=== PATIENT | female | born 1955 | race African-American/Black ===

== ENCOUNTER 2017-10-02 17:58 | Inpatient (IN) | payer OTHER ==
--- NOTE | 2017-10-02 18:17 | PDOC ---
Attending Attestation - Resident Resident Name: Gonzalo Greenberg - ED Attending Attestation I have performed the following: I have examined & evaluated the patient, The case was reviewed & discussed with the resident, I agree w/resident's findings & plan, Exceptions are as noted - HPI HPI: 10/02/17 18:18 61yo F hx HTN, back pain, currently in a NH for rehab p/w 10 minutes of chest tightness [employer]IOR [employer] PROGRAM[employer] in the ED. Reports tightness was sternal, non radiating, with no associated N/V, diaphoresis, SOB, cough. Not worse with deep inspiration. No current CP, complaining only of back pain that she normally has. - Physicial Exam PE: 10/02/17 21:24 GENERAL: Awake, alert, and fully oriented, in no acute distress HEAD: No signs of trauma EYES: PERRLA, EOMI, sclera anicteric, conjunctiva clear ENT: Auricles normal inspection, hearing grossly normal, nares patent, oropharynx clear without exudates. Moist mucosa NECK: Normal ROM, supple, no lymphadenopathy, JVD, or masses LUNGS: Breath sounds equal, clear to auscultation bilaterally. No wheezes, and no crackles HEART: Regular rate and rhythm, normal S1 and S2, no murmurs, rubs or gallops ABDOMEN: Soft, nontender, normoactive bowel sounds. No guarding, no rebound. No masses EXTREMITIES: Normal range of motion, no edema. No clubbing or cyanosis. No cords, erythema, or tenderness NEUROLOGICAL: Normal speech, cranial nerves intact, negative pronator drift, 5/ 5 strength in all 4 extremities, normal sensation to light touch in all 4 extremities, normal cerebellar exam, normal reflexes and tone SKIN: Warm, Dry, normal turgor, no rashes or lesions noted. - Medical Decision Making 10/02/17 21:24 61yo F hx HTN, smoking p/w 10 minutes of chest tightness, now resolved. Currently only c/o back pain which she has at baseline. Vitals wnl. Exam wnl. EKG non ischemic. Very atypical story for ACS, heart score is 2, will check 2 troponins. Will also obtain CXR and reassess. 10/03/17 02:40 Trop neg. Pt having persistent back pain and spasms, says worse than usual back pain. Rates pain at 10/10. Obtained CTA to r/o dissection which is negative, however, IOC recommends US as pt has some GB wall edema and gall stones. LFTs only mildly elevated, no WBC. On re-exam, no ttp in RUQ, neg murphys sign. We do not have US, will order in the AM. Pt still having pain, will admit for obs given persistent back pain. 10/03/17 02:51 Pt signed out to Dr. Rose. Case discussed in detail with admitting physician including history, physical exam and ancillary studies. Admitting physician has assumed care for the patient, will follow all pending diagnostics and will complete the evaluation and treatment. Discharge Disposition - Diagnosis Chest pain - Discharge Dispostion Condition at time of disposition: Stable Last Admission D/C Date: 07/16/16 Admit: Yes - Referrals - Patient Instructions - Post Discharge Activity - Transfer to Acute Care Facility Transfer comment: 10/03/17 02:54 I, Dr. Anette Harris MD, attest that this document has been prepared under my direction and personally reviewed by me in its entirety. I further attest, that it accurately reflects all work, treatment, procedures and medical decision -making performed by me. Heart Score/ECG Review #1 10/02/17 21:29 Twelve-lead EKG was performed and reviewed by me. Normal sinus rhythm, rate 66. Normal axis and intervals. No ST elevations or T-wave inversions.
--- NOTE | 2017-10-02 18:51 | PDOC ---
History of Present Illness - General Chief Complaint: Chest Pain Stated Complaint: CHEST PAIN Time Seen by Provider: 10/02/17 18:07 History Source: Patient, EMS Exam Limitations: No Limitations - History of Present Illness Initial Comments: 10/02/17 18:40 The patient is a 61F with a PMH of HTN and neuralgia who presents to the ED via EMS for chest pressure and back pain. The patient states that her back pain started 20 minutes before her presentation and is accompanied with back spasms, but she states that they are separately occurring. She currently is only complaining of back spasms. She denies any other complaints. No current CP, SOB , fever, chills, nausea, vomiting. Past History - Past Medical History Allergies/Adverse Reactions: Allergies Allergy/AdvReac Type Severity Reaction Status Date / Time Fish Containing Products Allergy Verified 10/04/17 05:09 Home Medications: Ambulatory Orders Baclofen [Lioresal -] 10 mg PO DAILY 10/02/17 Docusate Sodium [Colace -] 200 mg PO HS 10/02/17 Gabapentin [Neurontin -] 300 mg PO Q8H 10/02/17 Menthol [Bengay Ultra Strength] 1 each TP DAILY 10/02/17 Omeprazole Magnesium [Prilosec Otc] 20 mg PO DAILY 10/02/17 Oxycodone HCl [Roxicodone -] 5 mg PO Q6H 10/02/17 Sennosides [Senna] 17.2 mg PO DAILY 10/02/17 Amlodipine Besylate [Norvasc -] 5 mg PO DAILY #30 tablet 10/08/17 Lactulose (Oral Use) [Cephulac -] 20 gm PO TID #1 bottle 10/08/17 Levofloxacin [Levaquin] 750 mg PO DAILY #3 tab 10/08/17 Metronidazole [Flagyl -] 500 mg PO Q8H #9 tablet 10/08/17 Nadolol [Corgard] 40 mg GT DAILY #30 tablet 10/08/17 HTN: Yes - Immunization History Immunization Up to Date: Yes - Suicide/Smoking/Psychosocial Hx Smoking History: Current every day smoker Have you smoked in the past 12 months: No Number of Cigarettes Smoked Daily: 2 Cigars Per Day: 0 Hx Alcohol Use: No Drug/Substance Use Hx: No Substance Use Type: Alcohol Hx Substance Use Treatment: No Review of Systems - Review of Systems Comments:: 10/02/17 18:52 GENERAL/CONSTITUTIONAL: No fever or chills. No weakness. HEAD, EYES, EARS, NOSE AND THROAT: No change in vision. No ear pain or discharge. No sore throat. GASTROINTESTINAL: No nausea, vomiting, diarrhea, constipation, or abdominal pain. GENITOURINARY: No dysuria, frequency, hematuria, or change in urination. CARDIOVASCULAR: No chest pain, palpitations, or lightheadedness. RESPIRATORY: No cough, wheezing, shortness of breath, or hemoptysis. MUSCULOSKELETAL: Positive for back pain. No joint or muscle swelling or pain. SKIN: No rash or lesions. NEUROLOGIC: No headache, numbness, tingling, weakness, loss of consciousness, or change in strength/sensation. ENDOCRINE: No increased thirst. No abnormal weight change. HEMATOLOGIC/LYMPHATIC: No anemia, easy bleeding, or history of blood clots. ALLERGIC/IMMUNOLOGIC: No hives or skin allergy. *Physical Exam - Physical Exam Comments: 10/02/17 18:52 GENERAL: Well developed, well nourished. Awake and alert. No acute distress. HEENT: Normocephalic, atraumatic. Hearing grossly normal. Moist mucous membranes. NECK: Supple. Full ROM. No JVD. Carotid pulses 2+ and symmetric, without bruits. No thyromegaly. No lymphadenopathy. CARDIOVASCULAR: Regular rate and rhythm. No murmurs, rubs, or gallops. Distal pulses are 2+ and symmetric. PULMONARY: No evidence of respiratory distress. Lungs clear to auscultation bilaterally. No wheezing, rales or rhonchi. ABDOMINAL: Soft. Non-tender. Non-distended. No rebound or guarding. No organomegaly. Normoactive bowel sounds. GENITOURINARY: No CVA tenderness bilaterally. MUSCULOSKELETAL: Normal range of motion at all joints. No bony deformities or tenderness. EXTREMITIES: No cyanosis. No clubbing. No edema. No calf tenderness. SKIN: Warm and dry. Normal capillary refill. No rashes. No jaundice. NEUROLOGICAL: Alert, awake, appropriate. Cranial nerves 2-12 intact. PSYCHIATRIC: Cooperative. Good eye contact. Appropriate mood and affect. Heart Score/ECG Review #1 General ECG Interpretation: Sinus Rhythm, Normal Rate, Normal Intervals, No acute ischemic changes Compared to previous ECG there are: No significant change 10/02/17 19:00 Rate 66 QRS 84 QTc 446 ED Treatment Course - LABORATORY CBC & Chemistry Diagram: 10/08/17 07:15 10/08/17 07:15 - RADIOLOGY Radiology Studies Ordered: Category Date Time Status CHEST X-RAY PORTABLE* [RAD] Stat Radiology 10/02/17 18:18 Taken Medical Decision Making - Medical Decision Making 10/02/17 19:01 The patient is a 61F with a PMH of HTN and neuralgia who presents to the ED from [facility] for chest pressure and back spasms. Her chest pressure is resolved and her back spasms are a chronic problem. EKG looks unchanged. Labs pending. Patient signed out to [facility] team. *DC/Admit/Observation/Transfer Diagnosis at time of Disposition: Chest pain Qualifiers: Chest pain type: unspecified Qualified Code(s): R07.9 - Chest pain, unspecified - Discharge Dispostion Disposition: AGAINST MEDICAL ADVICE Condition at time of disposition: Stable - Prescriptions - Referrals - Patient Instructions - Post Discharge Activity
[2017-10-02 19:05] LABS: BASO % 0.1 % (0-2.0); EOS % 0.2 % (0-4.5); HEMATOCRIT 35.7 % (32.4-45.2); LYMPH % 13.6 % (8-40); MCH 29.9 pg (25.7-33.7); MCHC 33.6 g/dl (32.0-36.0); MEAN CELL VOLUME 89.1 fl (80-96); MEAN PLT VOLUME 8.4 fl (7.5-11.1); MONO % 7.4 % (3.8-10.2); NEUT % 78.7 % (42.8-82.8); PLATELET COUNT 135 K/MM3 (134-434); RBC 4.01 M/mm3 (3.60-5.2); RDW 13.2 % (11.6-15.6); WHITE BLOOD COUNT 9.5 K/mm3 (4.0-10.0)
[2017-10-02 19:37] LABS: ALBUMIN 2.8 g/dl (3.4-5.0); ANION GAP 10 (8-16); BILIRUBIN,TOTAL 0.9 mg/dL (0.2-1.0); BLOOD UREA NITROGEN 17 mg/dL (7-18); CALCIUM 8.4 mg/dL (8.5-10.1); CHLORIDE 106 mmol/L (98-107); CO2 21 mmol/L (21-32); CREATININE 1.1 mg/dL (0.55-1.02); GLUCOSE,RANDOM 175 mg/dL (74-106); POTASSIUM 3.9 mmol/L (3.5-5.1); SGOT/AST 51 U/L (15-37); SGPT/ALT 44 U/L (12-78); SODIUM 137 mmol/L (136-145); TOT PROT 8.6 g/dl (6.4-8.2)
[2017-10-02 19:39] LABS: ALK PHOS 117 U/L (45-117)
--- NOTE | 2017-10-02 21:20 | PDOC ---
*Physical Exam - Vital Signs Last Vital Signs Temp Pulse Resp BP Pulse Ox 97.4 F L 65 16 126/72 100 10/02/17 19:03 10/02/17 19:03 10/02/17 19:03 10/02/17 19:03 10/02/17 19:03 - Physical Exam General Appearance: Yes: Nourished HEENT: positive: EOMI, Normal Voice Neck: positive: Supple Respiratory/Chest: positive: Lungs Clear, Normal Breath Sounds. negative: Chest Tender, Respiratory Distress Cardiovascular: positive: Regular Rhythm, Regular Rate Gastrointestinal/Abdominal: positive: Normal Bowel Sounds, Soft. negative: Tender Heart Score/ECG Review - History History: Slightly suspicious - Electrocardiogram EKG: Normal - Age Age: 45-65 - Risk Factors Risk Factors Heart Score: Yes Hx Hypertension, Yes Smoking History - Troponin Troponin: </= normal limit ED Treatment Course - LABORATORY CBC & Chemistry Diagram: 10/02/17 Unknown 10/02/17 Unknown - ADDITIONAL ORDERS Additional order review: Laboratory Results 10/02/17 Unknown Sodium 137 Potassium 3.9 Chloride 106 Carbon Dioxide 21 Anion Gap 10 BUN 17 D Creatinine 1.1 H D Creat Clearance w eGFR 50.84 Random Glucose 175 H D Calcium 8.4 L Total Bilirubin 0.9 AST 51 H ALT 44 Alkaline Phosphatase 117 D Creatine Kinase 48 Troponin I < 0.02 Total Protein 8.6 H Albumin 2.8 L D 10/02/17 Unknown RBC 4.01 D MCV 89.1 MCHC 33.6 RDW 13.2 MPV 8.4 Neutrophils % 78.7 D Lymphocytes % 13.6 D Monocytes % 7.4 Eosinophils % 0.2 D Basophils % 0.1 Medical Decision Making - Medical Decision Making 10/02/17 21:19 Pt signed out by day team. NAD, hemodynamically stable, afebrile. Pt presented to ED with back pain and spasms. Pt also complained of chest pressure and so had a cardiac workup. -EKG unremarkable -Tn neg -Chest pressure resolved -HEART score 2 -Pt will be admitted *DC/Admit/Observation/Transfer Diagnosis at time of Disposition: Chest pain Qualifiers: Chest pain type: unspecified Qualified Code(s): R07.9 - Chest pain, unspecified - Discharge Dispostion Condition at time of disposition: Stable - Referrals - Patient Instructions - Post Discharge Activity
[2017-10-02] MEDS ORDERED: morphine CARPU-JECT 8 MG/1 ML DISP.SYRIN ONE (23:53)
[2017-10-02] MEDS ORDERED: ONDANSETRON 4 MG/2 ML VIAL ONE (23:54)
--- NOTE | 2017-10-03 03:00 | HP ---
CHIEF COMPLAINT:back pain, chest pressure PCP:does not remember the name HISTORY OF PRESENT ILLNESS: 61yo F hx HTN,Etoh abuse presented to the ED for rehab nursing facility due to back pain,chest pressure. Symptoms started today around 3 pm , med sternal chest pain , non radiating worsen with movement, 7/10 ,pressure like, not increased with bending forward.,associated with lightheadedness, dizziness ( room spinning around her). She also reports cough with light green phlegm. She ranjan any fever, chills, N/V/D/C. She ranjan any SOB on exertion, dyspnea, orthopnea, palpitation. She denies any urinary symptoms . she complain of chronic LE neuralgia. ER course was notable for: (1)CTA negative (2)CXR negative (3) BUN/Cr 26/10.1, Glu 175 Recent Travel:denies PAST MEDICAL HISTORY: HTN, Neuralgia , ETOH abuse PAST SURGICAL HISTORY: Neck surgery in [facility] on July Social History: Smokinppd/30 years Alcohol:heavy alcoholic Drugs: denies Family History: Allergies No Known Allergies Allergy (Verified 10/02/17 19:05) HOME MEDICATIONS: Home Medications Medication Instructions Recorded Amlodipine Besylate [Norvasc -] 10 mg PO DAILY 10/02/17 Baclofen [Lioresal -] 10 mg PO DAILY 10/02/17 Docusate Sodium [Colace -] 200 mg PO HS 10/02/17 Gabapentin [Neurontin -] 300 mg PO Q8H 10/02/17 Menthol [Bengay Ultra Strength] 1 each TP DAILY 10/02/17 Omeprazole Magnesium [Prilosec Otc] 20 mg PO DAILY 10/02/17 Oxycodone HCl [Roxicodone -] 5 mg PO Q6H 10/02/17 Sennosides [Senna] 17.2 mg PO DAILY 10/02/17 REVIEW OF SYSTEMS CONSTITUTIONAL: Absent: fever, chills, diaphoresis, generalized weakness, malaise, loss of appetite, weight change HEENT: Absent: rhinorrhea, nasal congestion, throat pain, throat swelling, difficulty swallowing, mouth swelling, ear pain, eye pain, visual changes CARDIOVASCULAR: Absent: chest pain, syncope, palpitations, irregular heart rate, lightheadedness , peripheral edema RESPIRATORY: Absent: cough, shortness of breath, dyspnea with exertion, orthopnea, wheezing, stridor, hemoptysis GASTROINTESTINAL: Absent: abdominal pain, abdominal distension, nausea, vomiting, diarrhea, constipation, melena, hematochezia GENITOURINARY: Absent: dysuria, frequency, urgency, hesitancy, hematuria, flank pain, genital pain MUSCULOSKELETAL: Absent: myalgia, arthralgia, joint swelling, back pain, neck pain SKIN: Absent: rash, itching, pallor HEMATOLOGIC/IMMUNOLOGIC: Absent: easy bleeding, easy bruising, lymphadenopathy, frequent infections ENDOCRINE: Absent: unexplained weight gain, unexplained weight loss, heat intolerance, cold intolerance NEUROLOGIC: Absent: headache, focal weakness or paresthesias, dizziness, unsteady gait, seizure, mental status changes, bladder or bowel incontinence PSYCHIATRIC: Absent: anxiety, depression, suicidal or homicidal ideation, hallucinations. PHYSICAL EXAMINATION Vital Signs - 24 hr 10/02/17 19:03 Temperature 97.4 F L Pulse Rate 65 Respiratory 16 Rate Blood Pressure 126/72 O2 Sat by Pulse 100 Oximetry (%) GENERAL: Awake, alert, and fully oriented, in mild distress. HEAD: Normal with no signs of trauma. EYES: Pupils equal, round and reactive to light, sclera anicteric, conjunctiva clear. EARS, NOSE, THROAT: dry mucous membranes.with bloody gum NECK: supple without lymphadenopathy, JVD, LUNGS: Breath sounds equal, clear to auscultation bilaterally. No wheezes, and no crackles. No accessory muscle use. HEART: Regular rate and rhythm, normal S1 and S2 without murmur, rub or gallop. ABDOMEN: Soft, nontender, not distended, normoactive bowel sounds, no guarding, no rebound, MUSCULOSKELETAL: Normal range of motion at all joints. No bony deformities or tenderness. No CVA tenderness. UPPER EXTREMITIES: 2+ pulses, warm, well-perfused. No cyanosis. No clubbing. No peripheral edema.strength 3/5 , sensation intact LOWER EXTREMITIES: 2+ pulses, warm, well-perfused. No calf tenderness. No peripheral edema. strength 4/5 , sensation intact, very sensitive to touch. NEUROLOGICAL: good mentation. Normal speech. gait not observed PSYCHIATRIC: Cooperative. Good eye contact. Appropriate mood and affect. SKIN: Warm, dry, no rashes or lesions noted, normal capillary refill. Laboratory Results - last 24 hr 10/02/17 10/02/17 Unknown Unknown WBC 9.5 D RBC 4.01 D Hgb 12.0 D Hct 35.7 D MCV 89.1 MCH 29.9 D MCHC 33.6 RDW 13.2 Plt Count 135 D MPV 8.4 Neutrophils % 78.7 D Lymphocytes % 13.6 D Monocytes % 7.4 Eosinophils % 0.2 D Basophils % 0.1 Sodium 137 Potassium 3.9 Chloride 106 Carbon Dioxide 21 Anion Gap 10 BUN 17 D Creatinine 1.1 H D Creat Clearance w eGFR 50.84 Random Glucose 175 H D Calcium 8.4 L Total Bilirubin 0.9 AST 51 H ALT 44 Alkaline Phosphatase 117 D Creatine Kinase 48 Troponin I < 0.02 Total Protein 8.6 H Albumin 2.8 L D CBC, BMP 10/02/17 Unknown 10/02/17 Unknown 10/02/2017 chest Xrays : pending reading 10/03/2017 CTA : pending reading ASSESSMENT/PLAN: 61 year old female with PMHx of HTN, Alcohol abuse , presented to the hospital for back pain , atypical chest pain and was found to have gallblader edema on ct and was admitted to tele for further evaluation. # Back pain likely 2/2 UTI vs cholecystitis * NPO * IV fluids * ABX Ceftriaxone 1gm IVBP daily * Abdomen US * consult surgery if positive for cholecystitis * UA * # Atypical Chest pain * Unlikely ACS * Heart score of 3 * Trend trop * EKG no st, t wave changes * repeat EKG * CTA negative * CXR negative for acute pathology # TYLER 2/2 low oral intake vs UTI * IVF NS @75 cc/hr * Avoid nephrotoxic agents * Urine lytes * repeat BUN/Cr * Ceftriaxone 1 gm daily IVBP * UA # Peripheral neuralgia * continue home meds # Hyperglycemia * Glu 175 on admission * HgbA1c * BGM Q8hr # HTN , controlled * continue home meds # H/O thrombocytopenia likely 2/2 Alcohol abuse vs essential * Avoid ASA * stop heparin if Plt less than 50,000 # Alchol abuse, * counselled * # Nicotine abuse * counselled * Nicotine patch # FEN * NS 75 CC /hr * E: monitor * N: NPO FOR NOW , # Proph * Moderate risk * SCDS Both legs # Dispo * admit to tele * day team Obtain med records for [facility] Visit type - Emergency Visit Emergency Visit: Yes ED Registration Date: 10/03/17 Care time: The patient presented to the Emergency Department on the above date and was hospitalized for further evaluation of their emergent condition. - New Patient This patient is new to me today: Yes Date on this admission: 10/03/17 - Critical Care Critical Care patient: No
--- NOTE | 2017-10-03 03:03 | PN ---
Teaching Attending Note Name of Resident: Ant Monahan ATTENDING PHYSICIAN STATEMENT I saw and evaluated the patient. I reviewed the resident's note and discussed the case with the resident. I agree with the resident's findings and plan as documented. SUBJECTIVE: 61 yo F with pmhx of, HTN, Back pain, Etoh abuse who presented with chest tightness. Notes tightness did not radiate and was at the center of her chest. No N/V/D. States her chest tightness is more toward the right side of her chest. Also notes, low back pain/flank pain. Denies any urinary burning or pain. No fevers or chills. States her chest tightness has now resolved. OBJECTIVE: Physical: VS: Vital Signs Period Temp Pulse Resp BP Sys/Ayala Pulse Ox Last 24 Hr 97.4 F 65 16 126/72 100 GEN: NAD, resting in bed, AA0X3 HEENT: NCAT, PERRL, throat without erythema or exudates CARD: RRR S1, S2 RESP: CTAB ABD: BSx4, mild TTP lacie-epigastric EXT:- C/C/E CBCD WBC 9.5 K/mm3 (4.0-10.0) D 10/02/17 Unknown RBC 4.01 M/mm3 (3.60-5.2) D 10/02/17 Unknown Hgb 12.0 GM/dL (10.7-15.3) D 10/02/17 Unknown Hct 35.7 % (32.4-45.2) D 10/02/17 Unknown MCV 89.1 fl (80-96) 10/02/17 Unknown MCHC 33.6 g/dl (32.0-36.0) 10/02/17 Unknown RDW 13.2 % (11.6-15.6) 10/02/17 Unknown Plt Count 135 K/MM3 (134-434) D 10/02/17 Unknown MPV 8.4 fl (7.5-11.1) 10/02/17 Unknown CMP Sodium 137 mmol/L (136-145) 10/02/17 Unknown Potassium 3.9 mmol/L (3.5-5.1) 10/02/17 Unknown Chloride 106 mmol/L (98-107) 10/02/17 Unknown Carbon Dioxide 21 mmol/L (21-32) 10/02/17 Unknown Anion Gap 10 (8-16) 10/02/17 Unknown BUN 17 mg/dL (7-18) D 10/02/17 Unknown Creatinine 1.1 mg/dL (0.55-1.02) H D 10/02/17 Unknown Creat Clearance w eGFR 50.84 (>60) 10/02/17 Unknown Random Glucose 175 mg/dL (74-106) H D 10/02/17 Unknown Calcium 8.4 mg/dL (8.5-10.1) L 10/02/17 Unknown Total Bilirubin 0.9 mg/dL (0.2-1.0) 10/02/17 Unknown AST 51 U/L (15-37) H 10/02/17 Unknown ALT 44 U/L (12-78) 10/02/17 Unknown Alkaline Phosphatase 117 U/L (45-117) D 10/02/17 Unknown Total Protein 8.6 g/dl (6.4-8.2) H 10/02/17 Unknown Albumin 2.8 g/dl (3.4-5.0) L D 10/02/17 Unknown CARDIAC ENZYMES Creatine Kinase 48 IU/L (26-192) 10/02/17 Unknown Troponin I < 0.02 ng/ml (0.00-0.05) 10/02/17 Unknown Ambulatory Orders Amlodipine Besylate [Norvasc -] 10 mg PO DAILY 10/02/17 Baclofen [Lioresal -] 10 mg PO DAILY 10/02/17 Docusate Sodium [Colace -] 200 mg PO HS 10/02/17 Gabapentin [Neurontin -] 300 mg PO Q8H 10/02/17 Menthol [Bengay Ultra Strength] 1 each TP DAILY 10/02/17 Omeprazole Magnesium [Prilosec Otc] 20 mg PO DAILY 10/02/17 Oxycodone HCl [Roxicodone -] 5 mg PO Q6H 10/02/17 Sennosides [Senna] 17.2 mg PO DAILY 10/02/17 CTA: No PE/Dissection, but there is marked gallbladder edema and cholithiasis EKG: HEART SCORE: 3 ASSESSMENT AND PLAN: 61 yo F with pmhx of, HTN, Back pain, Etoh abuse who presented with chest tightness and back pain, found to have gallbladder edema on CT being admitted for possible choleycystitis 1.) Back Pain- RO acute choleycystitis - Abd US - NPO - IVF - Type and Screen - Sx. consult after us - Ceftriaxone - CX 2.) Chest Pain- Atypical - Heart 3 - Trend Trop/Ekg 3.) TYLER - IVF - UA - U lytes - Avoid Nephrotoxins 3.) HTN - C/W home meds 4.) Dvt Ppx - Low Risk - SCDs Place in OBS-Tele
[2017-10-03] MEDS ORDERED: ACETAMINOPHEN 325 MG TABLET (FP) PO PRN (04:00)
[2017-10-03] MEDS ORDERED: SODIUM CHLORIDE 1,000 ML IV SCH (04:00)
[2017-10-03] MEDS ORDERED: HEPARIN NA (PORCINE) 5,000 UNITS/ML 1ML VIAL SQ SCH (06:00)
[2017-10-03] MEDS ORDERED: GABAPENTIN 100 MG CAPSULE (FP) ONE ×4 (06:10→21:13)
[2017-10-03 06:12] LABS: BASO % 0.1 % (0-2.0); HEMATOCRIT 33.6 % (32.4-45.2); HEMOGLOBIN 11.4 GM/dL (10.7-15.3); MCH 29.7 pg (25.7-33.7); MCHC 33.9 g/dl (32.0-36.0); MEAN CELL VOLUME 87.6 fl (80-96); MEAN PLT VOLUME 8.2 fl (7.5-11.1); MONO % 8.9 % (3.8-10.2); PLATELET COUNT 151 K/MM3 (134-434); RBC 3.84 M/mm3 (3.60-5.2); RDW 13.2 % (11.6-15.6); WHITE BLOOD COUNT 8.8 K/mm3 (4.0-10.0)
[2017-10-03] MEDS: GABAPENTIN 300 MG CAPSULE (FP) PO SCH ×3 (06:27→21:16)
[2017-10-03 06:38] LABS: ALBUMIN 2.7 g/dl (3.4-5.0); ALK PHOS 152 U/L (45-117); ANION GAP 9 (8-16); BILIRUBIN,TOTAL 1.8 mg/dL (0.2-1.0); BLOOD UREA NITROGEN 17 mg/dL (7-18); CALCIUM 8.4 mg/dL (8.5-10.1); CHLORIDE 108 mmol/L (98-107); CHOLESTEROL 116 mg/dL (50-200); CO2 22 mmol/L (21-32); CREATININE 1.1 mg/dL (0.55-1.02); GLUCOSE,RANDOM 98 mg/dL (74-106); HDL CHOLESTEROL 46 mg/dL (40-60); LDL CHOLESTEROL (ONLY SJRH) 67 mg/dL (5-100); POTASSIUM 3.6 mmol/L (3.5-5.1); SGOT/AST 104 U/L (15-37); SGPT/ALT 65 U/L (12-78); SODIUM 139 mmol/L (136-145); TOT PROT 8.3 g/dl (6.4-8.2); TRIGLYCERIDES 64 mg/dL (35-160)
[2017-10-03] MEDS: METRONIDAZOLE 500 MG PREMIXED 500 MG/100 ML MG IVPB SCH ×3 (09:00→21:16)
[2017-10-03] MEDS: BACLOFEN 10 MG TABLET (FP) PO SCH (11:18)
[2017-10-03] MEDS: amLODIPine BESYLATE 10 MG TABLET (FP) PO SCH (11:18)
[2017-10-03] MEDS: SENNOSIDES 8.6MG TABLET (FP) PO SCH (11:18)
[2017-10-03] MEDS: NICOTINE 14 MG/24 HOURS TOPICAL PATCH TD SCH (11:18)
[2017-10-03] MEDS: PANTOPRAZOLE 20 MG TABLET (FP) PO SCH (11:18)
[2017-10-03] MEDS ORDERED: METRONIDAZOLE 500 MG PREMIXED 500 MG/100 ML MG IVPB ONE ×2 (11:59→21:11)
[2017-10-03] MEDS ORDERED: CEFTRIAXONE 1 GM/50 ML BAG ONE (11:59)
[2017-10-03] MEDS: CEFTRIAXONE 1 G/50 ML PREMIX 50 ML IVPB SCH (13:54)
[2017-10-03] MEDS: SODIUM CHLORIDE 1,000 ML IV SCH (15:30)
--- NOTE | 2017-10-03 15:36 | PN ---
Physical Exam: SUBJECTIVE: Patient seen and examined OBJECTIVE: Vital Signs Period Temp Pulse Resp BP Sys/Ayala Pulse Ox Last 24 Hr 97.4 F-97.7 F 65-88 16-20 108-146/68-77 98-100 GENERAL: The patient is awake, alert, and fully oriented, in no acute distress. HEAD: Normal with no signs of trauma. EYES: PERRL, extraocular movements intact, sclera anicteric, conjunctiva clear. No ptosis. ENT: Ears normal, nares patent, oropharynx clear without exudates, moist mucous membranes. NECK: Trachea midline, full range of motion, supple. LUNGS: Breath sounds equal, clear to auscultation bilaterally, no wheezes, no crackles, no accessory muscle use. HEART: Regular rate and rhythm, S1, S2 without murmur, rub or gallop. ABDOMEN: Soft, nontender, nondistended, normoactive bowel sounds, no guarding, no rebound, no hepatosplenomegaly, no masses. EXTREMITIES: 2+ pulses, warm, well-perfused, no edema. NEUROLOGICAL: Cranial nerves II through XII grossly intact. Normal speech, gait not observed. PSYCH: Normal mood, normal affect. SKIN: Warm, dry, normal turgor, no rashes or lesions noted Laboratory Results - last 24 hr 10/02/17 10/02/17 10/03/17 Unknown Unknown 05:47 WBC 9.5 D 8.8 RBC 4.01 D 3.84 Hgb 12.0 D 11.4 Hct 35.7 D 33.6 MCV 89.1 87.6 MCH 29.9 D 29.7 MCHC 33.6 33.9 RDW 13.2 13.2 Plt Count 135 D 151 MPV 8.4 8.2 Neutrophils % 78.7 D 83.0 H Lymphocytes % 13.6 D 8.0 D Monocytes % 7.4 8.9 Eosinophils % 0.2 D 0.0 D Basophils % 0.1 0.1 Sodium 137 Potassium 3.9 Chloride 106 Carbon Dioxide 21 Anion Gap 10 BUN 17 D Creatinine 1.1 H D Creat Clearance w eGFR 50.84 Random Glucose 175 H D Hemoglobin A1c % Calcium 8.4 L Total Bilirubin 0.9 AST 51 H ALT 44 Alkaline Phosphatase 117 D Creatine Kinase 48 Troponin I < 0.02 Total Protein 8.6 H Albumin 2.8 L D Triglycerides Cholesterol Total LDL Cholesterol HDL Cholesterol 10/03/17 10/03/17 05:47 05:47 WBC RBC Hgb Hct MCV MCH MCHC RDW Plt Count MPV Neutrophils % Lymphocytes % Monocytes % Eosinophils % Basophils % Sodium 139 Potassium 3.6 Chloride 108 H Carbon Dioxide 22 Anion Gap 9 BUN 17 Creatinine 1.1 H Creat Clearance w eGFR 50.84 Random Glucose 98 D Hemoglobin A1c % 5.2 Calcium 8.4 L Total Bilirubin 1.8 H D AST 104 H D ALT 65 D Alkaline Phosphatase 152 H D Creatine Kinase 80 Troponin I < 0.02 Total Protein 8.3 H Albumin 2.7 L Triglycerides 64 Cholesterol 116 Total LDL Cholesterol 67 HDL Cholesterol 46 Active Medications Generic Name Dose Route Start Last Admin Trade Name Freq PRN Reason Stop Dose Admin Acetaminophen 650 mg 10/03/17 04:00 Tylenol - PO Q6H PRN FEVER OR PAIN Amlodipine Besylate 10 mg 10/03/17 10:00 10/03/17 11:18 Norvasc - PO 10 mg DAILY PORTIA Administration Baclofen 10 mg 10/03/17 10:00 10/03/17 11:18 Lioresal - PO 10 mg DAILY PORTIA Administration Docusate Sodium 200 mg 10/03/17 22:00 Colace - PO HS PORTIA Gabapentin 300 mg 10/03/17 06:00 10/03/17 15:18 Neurontin - PO 300 mg TID PORTIA Administration Sodium Chloride 1,000 mls @ 75 mls/hr 10/03/17 04:00 10/03/17 06:59 Normal Saline - IV 75 mls/hr ASDIR PORTIA Administration CEFTRIAXONE 1 G/50 ML PREMIX 50 mls @ 100 mls/hr 10/03/17 10:00 10/03/17 13: 54 Ceftriaxone 1 Gm-D5w Bag IVPB 100 mls/hr DAILY PORTIA Administration Metronidazole 500 mg in 100 mls @ 100 mls/hr 10/03/17 09:00 10/03/17 15:18 Flagyl 500mg Premixed Ivpb - IVPB 100 mls/hr Q6H-IV PORTIA Administration Nicotine 14 mg 10/03/17 10:00 10/03/17 11:18 Nicoderm Patch - TD 14 mg DAILY PORTIA Administration Oxycodone HCl 5 mg 10/03/17 04:45 Roxicodone - PO Q6H PRN PAIN Pantoprazole Sodium 20 mg 10/03/17 10:00 10/03/17 11:18 Protonix - PO 20 mg DAILY PORTIA Administration Senna 2 tab 10/03/17 10:00 10/03/17 11:18 Senna - PO 2 tab DAILY PORTIA Administration ASSESSMENT/PLAN: 61F w/ hx of HTN, Alcohol abuse, who presented to the hospital for back pain and atypical chest pain, was found to have gallbladder edema on ct and was admitted to [facility] for further evaluation. # Back pain likely 2/2 cholecystitis/choledocolithiasis * worsening LFTs * NPO * NS @ 125 cc/hr * Ceftriaxone 1gm IVBP daily and flagyl 500mg q6h * CT abdomen: cholelithiasis w/ gallbladder edema * f/u MRCP * GI and surgery recs appreciated # Atypical Chest pain- likely referred pain 2/2 cholecystitis/choledocolithiasis * Unlikely ACS * Heart score of 3 * trops <0.02 --> <0.02 * EKG no st, t wave changes * repeat EKG * CTA negative * CXR negative for acute pathology # TYLER- 2/2 low oral intake vs infection * IVF NS @125 cc/hr * Avoid nephrotoxic agents * Urine lytes * repeat BUN/Cr * Ceftriaxone and flagyl * UA # Peripheral neuralgia * continue home meds # Hyperglycemia * Glu 175 on admission * HgbA1c: 5.2 # HTN , controlled * continue home meds # H/O thrombocytopenia likely 2/2 Alcohol abuse vs. essential * Avoid ASA * stop heparin if Plt less than 50,000 # Alchol abuse, * counselled # Nicotine abuse * counselled * Nicotine patch # FEN * NS 125 CC /hr * E: monitor * N: NPO FOR NOW , # Proph * SCDS Both legs * protonix # Dispo * will obtain med records from Rubens Malone MD PGY1 Visit type - Emergency Visit Emergency Visit: Yes ED Registration Date: 10/03/17 Care time: The patient presented to the Emergency Department on the above date and was hospitalized for further evaluation of their emergent condition. - New Patient This patient is new to me today: No - Critical Care Critical Care patient: No
[2017-10-03] MEDS ORDERED: POTASSIUM CHLORIDE 30 MEQ in SODIUM CHLORIDE 285 ML IVPB ONE (16:00)
[2017-10-03 16:14] LABS: ALBUMIN 2.7 g/dl (3.4-5.0); ANION GAP 9 (8-16); BLOOD UREA NITROGEN 16 mg/dL (7-18); CALCIUM 8.5 mg/dL (8.5-10.1); CHLORIDE 110 mmol/L (98-107); CO2 23 mmol/L (21-32); GLUCOSE,RANDOM 96 mg/dL (74-106); POTASSIUM 3.7 mmol/L (3.5-5.1); SODIUM 142 mmol/L (136-145)
[2017-10-03 16:16] LABS: ALK PHOS 140 U/L (45-117); BILIRUBIN,TOTAL 2.8 mg/dL (0.2-1.0); CREATININE 1.1 mg/dL (0.55-1.02); SGOT/AST 80 U/L (15-37); SGPT/ALT 60 U/L (12-78); TOT PROT 8.2 g/dl (6.4-8.2)
--- NOTE | 2017-10-03 16:27 | PN ---
Teaching Attending Note Name of Resident: You Malone ATTENDING PHYSICIAN STATEMENT I saw and evaluated the patient. I reviewed the resident's note and discussed the case with the resident. I agree with the resident's findings and plan as documented. SUBJECTIVE: Patient is c/o having an abdominal pain on and off. OBJECTIVE: Vital Signs Temperature 97.7 F 10/03/17 01:12 Pulse Rate 88 10/03/17 06:30 Respiratory Rate 20 10/03/17 06:30 Blood Pressure 108/68 10/03/17 06:30 O2 Sat by Pulse Oximetry (%) 98 10/03/17 01:12 CBCD WBC 8.8 K/mm3 (4.0-10.0) 10/03/17 05:47 RBC 3.84 M/mm3 (3.60-5.2) 10/03/17 05:47 Hgb 11.4 GM/dL (10.7-15.3) 10/03/17 05:47 Hct 33.6 % (32.4-45.2) 10/03/17 05:47 MCV 87.6 fl (80-96) 10/03/17 05:47 MCHC 33.9 g/dl (32.0-36.0) 10/03/17 05:47 RDW 13.2 % (11.6-15.6) 10/03/17 05:47 Plt Count 151 K/MM3 (134-434) 10/03/17 05:47 MPV 8.2 fl (7.5-11.1) 10/03/17 05:47 CMP Sodium 139 mmol/L (136-145) 10/03/17 05:47 Potassium 3.6 mmol/L (3.5-5.1) 10/03/17 05:47 Chloride 108 mmol/L (98-107) H 10/03/17 05:47 Carbon Dioxide 22 mmol/L (21-32) 10/03/17 05:47 Anion Gap 9 (8-16) 10/03/17 05:47 BUN 17 mg/dL (7-18) 10/03/17 05:47 Creatinine 1.1 mg/dL (0.55-1.02) H 10/03/17 05:47 Creat Clearance w eGFR 50.84 (>60) 10/03/17 05:47 Random Glucose 98 mg/dL (74-106) D 10/03/17 05:47 Calcium 8.4 mg/dL (8.5-10.1) L 10/03/17 05:47 Total Bilirubin 1.8 mg/dL (0.2-1.0) H D 10/03/17 05:47 AST 104 U/L (15-37) H D 10/03/17 05:47 ALT 65 U/L (12-78) D 10/03/17 05:47 Alkaline Phosphatase 152 U/L (45-117) H D 10/03/17 05:47 Total Protein 8.3 g/dl (6.4-8.2) H 10/03/17 05:47 Albumin 2.7 g/dl (3.4-5.0) L 10/03/17 05:47 CARDIAC ENZYMES Creatine Kinase 80 IU/L (26-192) 10/03/17 05:47 Troponin I < 0.02 ng/ml (0.00-0.05) 10/03/17 05:47 Current Medications Generic Name Dose Route Start Last Admin Trade Name Freq PRN Reason Stop Dose Admin Acetaminophen 650 mg 10/03/17 04:00 Tylenol - PO Q6H PRN FEVER OR PAIN Amlodipine Besylate 10 mg 10/03/17 10:00 10/03/17 11:18 Norvasc - PO 10 mg DAILY PORTIA Administration Baclofen 10 mg 10/03/17 10:00 10/03/17 11:18 Lioresal - PO 10 mg DAILY PORTIA Administration Docusate Sodium 200 mg 10/03/17 22:00 Colace - PO HS PORTIA Gabapentin 300 mg 10/03/17 06:00 10/03/17 15:18 Neurontin - PO 300 mg TID PORTIA Administration CEFTRIAXONE 1 G/50 ML PREMIX 50 mls @ 100 mls/hr 10/03/17 10:00 10/03/17 13: 54 Ceftriaxone 1 Gm-D5w Bag IVPB 100 mls/hr DAILY PORTIA Administration Metronidazole 500 mg in 100 mls @ 100 mls/hr 10/03/17 09:00 10/03/17 15:18 Flagyl 500mg Premixed Ivpb - IVPB 100 mls/hr Q6H-IV PORTIA Administration Potassium Chloride 30 meq/ 300 mls @ 100 mls/hr 10/03/17 16:00 Sodium Chloride IVPB 12/25/17 18:59 ONCE ONE Sodium Chloride 1,000 mls @ 125 mls/hr 10/03/17 15:37 10/03/17 15:30 Normal Saline - IV 125 mls/hr ASDIR PORTIA Administration Nicotine 14 mg 10/03/17 10:00 10/03/17 11:18 Nicoderm Patch - TD 14 mg DAILY PORTIA Administration Oxycodone HCl 5 mg 10/03/17 04:45 Roxicodone - PO Q6H PRN PAIN Pantoprazole Sodium 20 mg 10/03/17 10:00 10/03/17 11:18 Protonix - PO 20 mg DAILY PORTIA Administration Senna 2 tab 10/03/17 10:00 10/03/17 11:18 Senna - PO 2 tab DAILY PORTIA Administration Home Medications Medication Instructions Recorded Amlodipine Besylate [Norvasc -] 10 mg PO DAILY 10/02/17 Baclofen [Lioresal -] 10 mg PO DAILY 10/02/17 Docusate Sodium [Colace -] 200 mg PO HS 10/02/17 Gabapentin [Neurontin -] 300 mg PO Q8H 10/02/17 Menthol [Bengay Ultra Strength] 1 each TP DAILY 10/02/17 Omeprazole Magnesium [Prilosec Otc] 20 mg PO DAILY 10/02/17 Oxycodone HCl [Roxicodone -] 5 mg PO Q6H 10/02/17 Sennosides [Senna] 17.2 mg PO DAILY 10/02/17 PE: per resident's note CTA of chest/abd pelvis showed abnl gallbladder MRCP showed liver cirrhosis with varices, cholelithiasis with thickened gallbladder wall, iliac artery stenosis, no evidence of choledocolithiasis. 3 hepatic lesions, possibly due to HCC. pancreatic head cysts, unclear etiology. significant atherosclerotic disease of b/l iliac arteries ASSESSMENT AND PLAN: Patient is a 61F with a PMHx of HTN and peripheral neuropathy who presents to the ED via EMS for chest pressure and back pain r/o acute cholecystitis. #Acute cholecystitis with elevated LFTs and ALP, NPO, IVF continue , on IV antibiotic Ceftriaxone 1gm IVBP daily and flagyl 500mg q6h per ID (day 2). trend LFts, MRCP reoported 3 hepatic lesions can't r/o liver CAncer , will get GI, surgery, and ID on board . daily PT, CMP, and direct bili. EGD, lactulose to 4 BM/day. # Atypical Chest pain unlikely ACS. no signs of ischemia on EKG, CXR negative, CTA negative # TYLER-on ivf continue # Peripheral neuralgia continue home gabapentin # HTN- controlled continue home amlodipine # H/O thrombocytopenia due to alcohol use , avoid ASA # Alcohol abuse counselled # Nicotine abuse on Nicotine patch DVT px: SCDS
[2017-10-03] MEDS ORDERED: KCL 10 MEQ IVPB 30 MEQ/300 ML INFUS.BAG IVPB ONE (16:36)
[2017-10-03] MEDS: DOCUSATE SODIUM 100 MG CAPSULE (FP) PO SCH (21:12)
[2017-10-03] MEDS ORDERED: oxyCODONE HCL 5 MG TABLET ONE (22:55)
[2017-10-03] MEDS: oxyCODONE HCL 5 MG TABLET PO PRN (22:57)
[2017-10-03 23:14] LABS: URINE APPEARANCE SLCLOUDY; URINE BILIRUBIN NEGATIVE (NEGATIVE); URINE BLOOD 1+ (NEGATIVE); URINE COLOR AMBER; URINE GLUCOSE (UA) NEGATIVE (NEGATIVE); URINE KETONE NEGATIVE (NEGATIVE); URINE NITRITE NEGATIVE (NEGATIVE); URINE PROTEIN NEGATIVE (NEGATIVE); URINE UROBILINOGEN 4.0 E.U/dl mg/dL (0.2-1.0)
[2017-10-03 23:17] LABS: URINE LEUK ESTERASE 3+ (NEGATIVE)
[2017-10-03 23:19] LABS: EPI CELLS RARE /HPF (FEW); URINE BACTERIA MODERATE /hpf (NONE SEEN); URINE MUCUS RARE
[2017-10-04 00:31] VITALS: BMI 22.8
[2017-10-04] MEDS: SODIUM CHLORIDE 1,000 ML IV SCH (02:10)
[2017-10-04] MEDS: METRONIDAZOLE 500 MG PREMIXED 500 MG/100 ML MG IVPB SCH ×4 (02:11→22:01)
[2017-10-04] MEDS: GABAPENTIN 300 MG CAPSULE (FP) PO SCH ×3 (05:07→22:01)
[2017-10-04 07:45] LABS: HEMATOCRIT 33.7 % (32.4-45.2); HEMOGLOBIN 11.1 GM/dL (10.7-15.3); MCH 29.1 pg (25.7-33.7); MEAN CELL VOLUME 88.3 fl (80-96); MEAN PLT VOLUME 8.6 fl (7.5-11.1); PLATELET COUNT 112 K/MM3 (134-434); RBC 3.82 M/mm3 (3.60-5.2); WHITE BLOOD COUNT 6.6 K/mm3 (4.0-10.0)
[2017-10-04 08:17] LABS: ALBUMIN 2.6 g/dl (3.4-5.0); ANION GAP 10 (8-16); BILIRUBIN,TOTAL 2.7 mg/dL (0.2-1.0); BLOOD UREA NITROGEN 16 mg/dL (7-18); CALCIUM 9.1 mg/dL (8.5-10.1); CHLORIDE 109 mmol/L (98-107); CO2 21 mmol/L (21-32); CREATININE 0.9 mg/dL (0.55-1.02); GLUCOSE,RANDOM 76 mg/dL (74-106); SGOT/AST 63 U/L (15-37); SGPT/ALT 49 U/L (12-78); SODIUM 140 mmol/L (136-145)
[2017-10-04 08:18] LABS: ALK PHOS 135 U/L (45-117); TOT PROT 7.9 g/dl (6.4-8.2)
[2017-10-04] MEDS: SENNOSIDES 8.6MG TABLET (FP) PO SCH (09:45)
[2017-10-04] MEDS: amLODIPine BESYLATE 10 MG TABLET (FP) PO SCH (09:45)
[2017-10-04] MEDS: PANTOPRAZOLE 20 MG TABLET (FP) PO SCH (09:46)
[2017-10-04] MEDS: BACLOFEN 10 MG TABLET (FP) PO SCH (09:46)
[2017-10-04] MEDS: NICOTINE 14 MG/24 HOURS TOPICAL PATCH TD SCH (09:46)
[2017-10-04] MEDS: CEFTRIAXONE 1 G/50 ML PREMIX 50 ML IVPB SCH (09:47)
--- NOTE | 2017-10-04 10:07 | PN ---
Progress Note (short form) - Note Progress Note: ID consult dictated imp/reccd 61 year old female admitted from [facility] with chest pain, back pain and abdominal pain- not asociated with food, no nausea or vomiting, +Bm 10/02 ?fever CTA of chest/abd pelvis showed abnl gallbladder MRCP showed liver cirrhosis with varices, cholelithiasis with thickened gallbladder wall, iliac artery stenosis reports 20 pound eight loss active cigarette smoker stopped etoh use about 6 months ago no ivdu bdominal pain-?cholycystitis- blood cultures, gi/surgery to see, continue rocephin/flagyl cirrhosis- prior hep c positive with negative pcr in 2016, check afp weight loss- HIV (she consents) recent neck surgery Problem List - Problems (1) Abdominal pain Code(s): R10.9 - UNSPECIFIED ABDOMINAL PAIN (2) Liver cirrhosis Code(s): K74.60 - UNSPECIFIED CIRRHOSIS OF LIVER (3) Weight loss Code(s): R63.4 - ABNORMAL WEIGHT LOSS
--- NOTE | 2017-10-04 10:55 | CONS ---
DATE OF CONSULTATION: REQUESTING PHYSICIAN: Hospitalist service HISTORY: This is a 61-year-old woman. She was admitted from [facility] with chest pain, abdominal pain, and back pain. She notes she may have had a fever at the long-term. She is unclear. At the time of admission, she denied fevers and chills. There was no nausea and vomiting. She had a bowel movement on the 24 that she reports as normal. There is no dysuria or shortness of breath. She underwent a CT angiogram of the chest, abdomen, and pelvis in the ER that showed an abnormal gallbladder. She then had an MRCP that showed liver cirrhosis with varices, cholelithiasis with a thickened gallbladder wall, and iliac artery stenosis. I am asked to see her for further evaluation. She notes that she has had a 20-pound weight loss, which has been involuntary. She is unclear why. She is a former alcohol drinker. She stopped about 6 months ago and has not drunk since that time. She has a history of a recent neck surgery she states in July. She had surgery on her neck she thinks in [facility]. She has been in the long-term since that time. Otherwise, she lives alone. She had an admission to [facility] in June 2016 when she prescribed her ankle. At that time, she had blood tests including hepatitis serology that showed history of hepatitis A IgG. Her hepatitis B serology was negative. Hepatitis C antibody was positive with a negative RNA. ALLERGIES: FISH-CONTAINING PRODUCTS. MEDICATIONS: At the long-term include docusate sodium, Prilosec, Senna, oxycodone, Bengay patch, gabapentin, amlodipine, baclofen. PAST MEDICAL HISTORY: Notable for constipation, hypertension, muscle spasm. She has a history of alcohol use in the past and has been substance-free for 6 months. PAST SURGICAL HISTORY: Significant for neck surgery. She does not know what she had done at [facility], she thinks, in July. SOCIAL HISTORY: Prior to the SNF admission, she was living along. She smokes she reports 5 cigarettes a day for many years. She is a former alcohol user. She stopped about 6 months ago. There is no history of any intravenous drug use or marijuana use. FAMILY HISTORY: She denies. REVIEW OF SYSTEMS: She notes generalized weakness. She notes a 20-pound weight loss of unclear etiology. No chest discomfort. She denies any cough. She notes this abdominal pain that she has had off and on she reports for the last year. She did have a normal bowel movement yesterday. PHYSICAL EXAMINATION: General: She is awake and alert. Vital Signs: Temperature 98.5, pulse 82, blood pressure 136/75, respiratory rate 20. She is saturating 97% on room air. HEENT: She is normocephalic. Her eyes are muddy. Neck: Supple. She has no thrush. Lungs: Clear to auscultation. Heart: Regular rate and rhythm. Abdomen: Soft. She has diffuse tenderness to palpation everywhere throughout both mid epigastric and right upper quadrant as well as lower quadrant. Extremities: Without edema. Skin: She has a well-healed cervical neck incision on the back of her neck. LABORATORY DATA: White count today is 6.6, hemoglobin 11.1, platelets 112. BUN 16, creatinine 0.9 with a bilirubin of 2.7, AST 6.3, alkaline phosphatase 135. Urinalysis has 45 white cells. Hepatitis C serology last year, as stated previously, positive hepatitis C antibody with negative PCR, positive hepatitis A antibody. IMAGING STUDIES: As previously stated. ASSESSMENT AND PLAN: 1. In summary, this is a 61-year-old woman with abdominal pain, abnormal gallbladder on imaging, possible cholecystitis. Would obtain blood cultures. GI and Surgery to see. Would continue Rocephin and Flagyl. 2. Liver cirrhosis. Prior hepatitis C antibody positive with negative polymerase chain reaction. Would check and AFP given the MRCP findings. 3. Weight loss. Would check an HIV. She verbally consents. 4. Recent neck surgery as noted by the patient. Further recommendations to follow based on her clinical course. KRISHNA MENJIVAR M.D. [id number]
--- NOTE | 2017-10-04 11:54 | CON.GI ---
Consult Consult Specialty:: GI - History of Present Illness History of Present Illness: Chart reviewed. current and 2016 admissions records reviewed 61 yof HTN, Etoh abuse (vodka+beer) presented to the ED from rehab nursing facility due to back pain, chest pressure. Symptoms started 10/02/17 around 3 pm , mid sternal chest pain , non radiating worsen with movement, 7/10, pressure like, not increased with bending forward. Associated with lightheadedness, dizziness (room spinning around her). She also reporte cough with light green phlegm. She denied any fever, chills, N/V/D/C, SOB on exertion , dyspnea, orthopnea, palpitation. GI service was called for elevated liver enzymes, abnormal CT/MRCP of the liver finding in settings of chronic alcoholism. At the time of this encounter, not in distress, awake and alert. - History Source History Provided By: Patient, Medical Record Limitations to Obtaining History: Clinical Condition - Past Medical History Hepatobiliary: Yes: Cholelithiasis, Other (Alcoholism with suspected advanced alcoholic liver disease) ...: No Psych: Yes: Addictions (alcoholism) - Past Surgical History Past Surgical History: Yes: Colonoscopy, - Alcohol/Substance Use Hx Alcohol Use: Yes - Smoking History Smoking history: Current every day smoker Have you smoked in the past 12 months: No Aproximately how many cigarettes per day: 5 - Social History Usual Living Arrangement: With Spouse ADL: Independent Occupation: unemployed History of Recent Travel: No Home Medications - Allergies Allergies/Adverse Reactions: Allergies Allergy/AdvReac Type Severity Reaction Status Date / Time Fish Containing Products Allergy Verified 10/04/17 05:09 - Home Medications Home Medications: Ambulatory Orders Amlodipine Besylate [Norvasc -] 10 mg PO DAILY 10/02/17 Baclofen [Lioresal -] 10 mg PO DAILY 10/02/17 Docusate Sodium [Colace -] 200 mg PO HS 10/02/17 Gabapentin [Neurontin -] 300 mg PO Q8H 10/02/17 Menthol [Bengay Ultra Strength] 1 each TP DAILY 10/02/17 Omeprazole Magnesium [Prilosec Otc] 20 mg PO DAILY 10/02/17 Oxycodone HCl [Roxicodone -] 5 mg PO Q6H 10/02/17 Sennosides [Senna] 17.2 mg PO DAILY 10/02/17 Family Disease History - Family Disease History Family Disease History: CA: Mother (breast cancer) Review of Systems Findings/Remarks: As per H&P, HPI Physical Exam-GI Vital Signs: Vital Signs Temperature 98.1 F 10/04/17 10:00 Pulse Rate 80 10/04/17 10:00 Respiratory Rate 20 10/04/17 10:00 Blood Pressure 116/70 10/04/17 10:00 O2 Sat by Pulse Oximetry (%) 95 10/04/17 09:00 Constitutional: Yes: No Distress, Calm Eyes: Yes: Sclera Icterus HENT: Yes: Atraumatic, Normocephalic Neck: No: Lymphadenopathy, Thyromegaly Cardiovascular: Yes: Regular Rate and Rhythm Respiratory: Yes: Regular Gastrointestinal Inspection: No: Ascites, Distention ...Palpate: Yes: Soft, Tenderness (ruq/r. lower ribcage). No: Firm/Rigid, Guarding, Mass Neurological: Yes: Alert. No: Aphasia, Asterixis, Tremors Labs: CBC, BMP 10/04/17 05:35 10/04/17 05:35 Laboratory Results - last 24 hr 10/03/17 10/03/17 10/03/17 15:00 19:00 19:00 WBC RBC Hgb Hct MCV MCH MCHC RDW Plt Count MPV Sodium 142 Potassium 3.7 Chloride 110 H Carbon Dioxide 23 Anion Gap 9 BUN 16 Creatinine 1.1 H Creat Clearance w eGFR 50.84 Random Glucose 96 Calcium 8.5 Total Bilirubin 2.8 H D AST 80 H D ALT 60 Alkaline Phosphatase 140 H Total Protein 8.2 Albumin 2.7 L CA 19-9 Antigen Urine Color [place] Urine Appearance Slcloudy Urine pH 5.0 Ur Specific [place] 1.026 Urine Protein Negative Urine Glucose (UA) Negative Urine Ketones Negative Urine Blood 1+ H Urine Nitrite Negative Urine Bilirubin Negative Urine Urobilinogen 4.0 e.u/dl H Urine WBC (Auto) 45 Urine RBC (Auto) 18 Ur Epithelial Cells Rare Urine Bacteria Moderate Urine Mucus Rare Ur Random Sodium 43 Ur Random Potassium 46.4 Ur Random Chloride 32 Urine Creatinine HIV 1&2 Antibody Screen HIV P24 Antigen 10/03/17 10/04/17 10/04/17 20:00 05:35 05:35 WBC 6.6 RBC 3.82 Hgb 11.1 Hct 33.7 MCV 88.3 MCH 29.1 MCHC 33.0 RDW 13.0 Plt Count 112 L D MPV 8.6 Sodium 140 Potassium 4.0 Chloride 109 H Carbon Dioxide 21 Anion Gap 10 BUN 16 Creatinine 0.9 Creat Clearance w eGFR > 60 Random Glucose 76 D Calcium 9.1 Total Bilirubin 2.7 H AST 63 H D ALT 49 Alkaline Phosphatase 135 H Total Protein 7.9 Albumin 2.6 L CA 19-9 Antigen Urine Color Urine Appearance Urine pH Ur Specific [place] Urine Protein Urine Glucose (UA) Urine Ketones Urine Blood Urine Nitrite Urine Bilirubin Urine Urobilinogen Urine WBC (Auto) Urine RBC (Auto) Ur Epithelial Cells Urine Bacteria Urine Mucus Ur Random Sodium Ur Random Potassium Ur Random Chloride Urine Creatinine 98.2 HIV 1&2 Antibody Screen HIV P24 Antigen 10/04/17 10/04/17 10:35 10:55 WBC RBC Hgb Hct MCV MCH MCHC RDW Plt Count MPV Sodium Potassium Chloride Carbon Dioxide Anion Gap BUN Creatinine Creat Clearance w eGFR Random Glucose Calcium Total Bilirubin AST ALT Alkaline Phosphatase Total Protein Albumin CA 19-9 Antigen Cancelled Urine Color Urine Appearance Urine pH Ur Specific [place] Urine Protein Urine Glucose (UA) Urine Ketones Urine Blood Urine Nitrite Urine Bilirubin Urine Urobilinogen Urine WBC (Auto) Urine RBC (Auto) Ur Epithelial Cells Urine Bacteria Urine Mucus Ur Random Sodium Ur Random Potassium Ur Random Chloride Urine Creatinine HIV 1&2 Antibody Screen Negative HIV P24 Antigen Negative Laboratory Tests 10/02/17 10/02/17 10/03/17 Unknown Unknown 05:47 WBC 9.5 D 8.8 RBC 4.01 D 3.84 Hgb 12.0 D 11.4 Hct 35.7 D 33.6 MCV 89.1 87.6 MCH 29.9 D 29.7 MCHC 33.6 33.9 RDW 13.2 13.2 Plt Count 135 D 151 MPV 8.4 8.2 Neutrophils % 78.7 D 83.0 H Lymphocytes % 13.6 D 8.0 D Monocytes % 7.4 8.9 Eosinophils % 0.2 D 0.0 D Basophils % 0.1 0.1 Sodium 137 Potassium 3.9 Chloride 106 Carbon Dioxide 21 Anion Gap 10 BUN 17 D Creatinine 1.1 H D Creat Clearance w eGFR 50.84 Random Glucose 175 H D Hemoglobin A1c % Calcium 8.4 L Total Bilirubin 0.9 AST 51 H ALT 44 Alkaline Phosphatase 117 D Creatine Kinase 48 Troponin I < 0.02 Total Protein 8.6 H Albumin 2.8 L D Triglycerides Cholesterol Total LDL Cholesterol HDL Cholesterol CA 19-9 Antigen Urine Color Urine Appearance Urine pH Ur Specific [place] Urine Protein Urine Glucose (UA) Urine Ketones Urine Blood Urine Nitrite Urine Bilirubin Urine Urobilinogen Urine WBC (Auto) Urine RBC (Auto) Ur Epithelial Cells Urine Bacteria Urine Mucus Ur Random Sodium Ur Random Potassium Ur Random Chloride Urine Creatinine HIV 1&2 Antibody Screen HIV P24 Antigen 10/03/17 10/03/17 10/03/17 05:47 05:47 15:00 WBC RBC Hgb Hct MCV MCH MCHC RDW Plt Count MPV Neutrophils % Lymphocytes % Monocytes % Eosinophils % Basophils % Sodium 139 142 Potassium 3.6 3.7 Chloride 108 H 110 H Carbon Dioxide 22 23 Anion Gap 9 9 BUN 17 16 Creatinine 1.1 H 1.1 H Creat Clearance w eGFR 50.84 50.84 Random Glucose 98 D 96 Hemoglobin A1c % 5.2 Calcium 8.4 L 8.5 Total Bilirubin 1.8 H D 2.8 H D AST 104 H D 80 H D ALT 65 D 60 Alkaline Phosphatase 152 H D 140 H Creatine Kinase 80 Troponin I < 0.02 Total Protein 8.3 H 8.2 Albumin 2.7 L 2.7 L Triglycerides 64 Cholesterol 116 Total LDL Cholesterol 67 HDL Cholesterol 46 CA 19-9 Antigen Urine Color Urine Appearance Urine pH Ur Specific [place] Urine Protein Urine Glucose (UA) Urine Ketones Urine Blood Urine Nitrite Urine Bilirubin Urine Urobilinogen Urine WBC (Auto) Urine RBC (Auto) Ur Epithelial Cells Urine Bacteria Urine Mucus Ur Random Sodium Ur Random Potassium Ur Random Chloride Urine Creatinine HIV 1&2 Antibody Screen HIV P24 Antigen 10/03/17 10/03/17 10/03/17 19:00 19:00 20:00 WBC RBC Hgb Hct MCV MCH MCHC RDW Plt Count MPV Neutrophils % Lymphocytes % Monocytes % Eosinophils % Basophils % Sodium Potassium Chloride Carbon Dioxide Anion Gap BUN Creatinine Creat Clearance w eGFR Random Glucose Hemoglobin A1c % Calcium Total Bilirubin AST ALT Alkaline Phosphatase Creatine Kinase Troponin I Total Protein Albumin Triglycerides Cholesterol Total LDL Cholesterol HDL Cholesterol CA 19-9 Antigen Urine Color [place] Urine Appearance Slcloudy Urine pH 5.0 Ur Specific [place] 1.026 Urine Protein Negative Urine Glucose (UA) Negative Urine Ketones Negative Urine Blood 1+ H Urine Nitrite Negative Urine Bilirubin Negative Urine Urobilinogen 4.0 e.u/dl H Urine WBC (Auto) 45 Urine RBC (Auto) 18 Ur Epithelial Cells Rare Urine Bacteria Moderate Urine Mucus Rare Ur Random Sodium 43 Ur Random Potassium 46.4 Ur Random Chloride 32 Urine Creatinine 98.2 HIV 1&2 Antibody Screen HIV P24 Antigen 10/04/17 10/04/17 10/04/17 05:35 05:35 10:35 WBC 6.6 RBC 3.82 Hgb 11.1 Hct 33.7 MCV 88.3 MCH 29.1 MCHC 33.0 RDW 13.0 Plt Count 112 L D MPV 8.6 Neutrophils % Lymphocytes % Monocytes % Eosinophils % Basophils % Sodium 140 Potassium 4.0 Chloride 109 H Carbon Dioxide 21 Anion Gap 10 BUN 16 Creatinine 0.9 Creat Clearance w eGFR > 60 Random Glucose 76 D Hemoglobin A1c % Calcium 9.1 Total Bilirubin 2.7 H AST 63 H D ALT 49 Alkaline Phosphatase 135 H Creatine Kinase Troponin I Total Protein 7.9 Albumin 2.6 L Triglycerides Cholesterol Total LDL Cholesterol HDL Cholesterol CA 19-9 Antigen Urine Color Urine Appearance Urine pH Ur Specific [place] Urine Protein Urine Glucose (UA) Urine Ketones Urine Blood Urine Nitrite Urine Bilirubin Urine Urobilinogen Urine WBC (Auto) Urine RBC (Auto) Ur Epithelial Cells Urine Bacteria Urine Mucus Ur Random Sodium Ur Random Potassium Ur Random Chloride Urine Creatinine HIV 1&2 Antibody Screen Negative HIV P24 Antigen Negative 10/04/17 10:55 WBC RBC Hgb Hct MCV MCH MCHC RDW Plt Count MPV Neutrophils % Lymphocytes % Monocytes % Eosinophils % Basophils % Sodium Potassium Chloride Carbon Dioxide Anion Gap BUN Creatinine Creat Clearance w eGFR Random Glucose Hemoglobin A1c % Calcium Total Bilirubin AST ALT Alkaline Phosphatase Creatine Kinase Troponin I Total Protein Albumin Triglycerides Cholesterol Total LDL Cholesterol HDL Cholesterol CA 19-9 Antigen Cancelled Urine Color Urine Appearance Urine pH Ur Specific [place] Urine Protein Urine Glucose (UA) Urine Ketones Urine Blood Urine Nitrite Urine Bilirubin Urine Urobilinogen Urine WBC (Auto) Urine RBC (Auto) Ur Epithelial Cells Urine Bacteria Urine Mucus Ur Random Sodium Ur Random Potassium Ur Random Chloride Urine Creatinine HIV 1&2 Antibody Screen HIV P24 Antigen Imaging - Results Cat Scan: Report Reviewed MRI: Report Reviewed (MRCP) Problem List - Problems (1) Liver cirrhosis Code(s): K74.60 - UNSPECIFIED CIRRHOSIS OF LIVER (2) Alcohol abuse Code(s): F10.10 - ALCOHOL ABUSE, UNCOMPLICATED (3) HCV antibody positive Code(s): R76.8 - OTHER SPECIFIED ABNORMAL IMMUNOLOGICAL FINDINGS IN SERUM (4) Cholelithiases Code(s): K80.20 - CALCULUS OF GALLBLADDER W/O CHOLECYSTITIS W/O OBSTRUCTION Assessment/Plan A 61 yof with alcoholic, and possibly HCV, liver cirrhosis w/o ascites, w/PHTN. Cholestatic picture on hepatic profile. Predominantly indirect bilirubin, in this case, also suggests advanced liver disease. Cholelithiasis HCV ab positive in 2016 Mildly elevated BUN and cr Normal Na, K HCV viral load daily PT, CMP, with direct bili Lactulose to 4 bm/day AFP EGD
--- NOTE | 2017-10-04 13:12 | EKG ---
Test Reason : Blood Pressure : / mmHG Vent. Rate : 066 BPM Atrial Rate : 066 BPM P-R Int : 164 ms QRS Dur : 084 ms QT Int : 426 ms P-R-T Axes : 066 036 062 degrees QTc Int : 446 ms POOR DATA QUALITY, INTERPRETATION MAY BE ADVERSELY AFFECTED NORMAL SINUS RHYTHM POSSIBLE LEFT ATRIAL ENLARGEMENT SEPTAL INFARCT , AGE UNDETERMINED ABNORMAL ECG NO PREVIOUS ECGS AVAILABLE Confirmed by MD Jeffery, Farshad ([id number]) on 10/04/2017 1:11:50 PM Referred By: Confirmed By:Farshad Gil MD
--- NOTE | 2017-10-04 14:10 | PN ---
Physical Exam: SUBJECTIVE: Patient seen and examined. Pt endorses intermittent right-sided abdominal pain, currently not in pain. She denies chest pain, SOB, fevers, chills, n/v/d/c, and dysuria. She states that she has been having occasional night sweats, fevers, and unintentional weight loss (about 20 pounds in last year). OBJECTIVE: Vital Signs Period Temp Pulse Resp BP Sys/Ayala Pulse Ox Last 24 Hr 98.0 F-98.5 F 80-88 20-20 116-136/62-75 95-97 GENERAL: elderly appearing female, lying in bed, alert HEENT: poor dentition NECK: Trachea midline, full range of motion, supple. LUNGS: Breath sounds equal, clear to auscultation bilaterally, no wheezes, no crackles, no accessory muscle use. HEART: Regular rate and rhythm, S1, S2 without murmur, rub or gallop. ABDOMEN: Soft, nontender, nondistended, normoactive bowel sounds, no guarding, no rebound, no hepatosplenomegaly, no masses. EXTREMITIES: 2+ pulses, warm, well-perfused, no edema. NEUROLOGICAL: Cranial nerves II through XII grossly intact. Normal speech, gait not observed. Laboratory Results - last 24 hr 10/03/17 10/03/17 10/03/17 15:00 19:00 19:00 WBC RBC Hgb Hct MCV MCH MCHC RDW Plt Count MPV Sodium 142 Potassium 3.7 Chloride 110 H Carbon Dioxide 23 Anion Gap 9 BUN 16 Creatinine 1.1 H Creat Clearance w eGFR 50.84 Random Glucose 96 Calcium 8.5 Total Bilirubin 2.8 H D AST 80 H D ALT 60 Alkaline Phosphatase 140 H Total Protein 8.2 Albumin 2.7 L CA 19-9 Antigen Urine Color [place] Urine Appearance Slcloudy Urine pH 5.0 Ur Specific [place] 1.026 Urine Protein Negative Urine Glucose (UA) Negative Urine Ketones Negative Urine Blood 1+ H Urine Nitrite Negative Urine Bilirubin Negative Urine Urobilinogen 4.0 e.u/dl H Ur Leukocyte Esterase 2+ H Urine WBC (Auto) 45 Urine RBC (Auto) 18 Ur Epithelial Cells Rare Urine Bacteria Moderate Urine Mucus Rare Ur Random Sodium 43 Ur Random Potassium 46.4 Ur Random Chloride 32 Urine Creatinine HIV 1&2 Antibody Screen HIV P24 Antigen 10/03/17 10/04/17 10/04/17 20:00 05:35 05:35 WBC 6.6 RBC 3.82 Hgb 11.1 Hct 33.7 MCV 88.3 MCH 29.1 MCHC 33.0 RDW 13.0 Plt Count 112 L D MPV 8.6 Sodium 140 Potassium 4.0 Chloride 109 H Carbon Dioxide 21 Anion Gap 10 BUN 16 Creatinine 0.9 Creat Clearance w eGFR > 60 Random Glucose 76 D Calcium 9.1 Total Bilirubin 2.7 H AST 63 H D ALT 49 Alkaline Phosphatase 135 H Total Protein 7.9 Albumin 2.6 L CA 19-9 Antigen Urine Color Urine Appearance Urine pH Ur Specific [place] Urine Protein Urine Glucose (UA) Urine Ketones Urine Blood Urine Nitrite Urine Bilirubin Urine Urobilinogen Ur Leukocyte Esterase Urine WBC (Auto) Urine RBC (Auto) Ur Epithelial Cells Urine Bacteria Urine Mucus Ur Random Sodium Ur Random Potassium Ur Random Chloride Urine Creatinine 98.2 HIV 1&2 Antibody Screen HIV P24 Antigen 10/04/17 10/04/17 10:35 10:55 WBC RBC Hgb Hct MCV MCH MCHC RDW Plt Count MPV Sodium Potassium Chloride Carbon Dioxide Anion Gap BUN Creatinine Creat Clearance w eGFR Random Glucose Calcium Total Bilirubin AST ALT Alkaline Phosphatase Total Protein Albumin CA 19-9 Antigen Cancelled Urine Color Urine Appearance Urine pH Ur Specific [place] Urine Protein Urine Glucose (UA) Urine Ketones Urine Blood Urine Nitrite Urine Bilirubin Urine Urobilinogen Ur Leukocyte Esterase Urine WBC (Auto) Urine RBC (Auto) Ur Epithelial Cells Urine Bacteria Urine Mucus Ur Random Sodium Ur Random Potassium Ur Random Chloride Urine Creatinine HIV 1&2 Antibody Screen Negative HIV P24 Antigen Negative Active Medications Generic Name Dose Route Start Last Admin Trade Name Rupinder PRN Reason Stop Dose Admin Acetaminophen 650 mg 10/03/17 04:00 Tylenol - PO Q6H PRN FEVER OR PAIN Amlodipine Besylate 10 mg 10/03/17 10:00 10/04/17 09:45 Norvasc - PO 10 mg DAILY PORTIA Administration Baclofen 10 mg 10/03/17 10:00 10/04/17 09:46 Lioresal - PO 10 mg DAILY PORTIA Administration Docusate Sodium 200 mg 10/03/17 22:00 10/03/17 21:12 Colace - PO Not Given HS PORTIA Gabapentin 300 mg 10/03/17 06:00 10/04/17 05:07 Neurontin - PO Not Given TID PORTIA CEFTRIAXONE 1 G/50 ML PREMIX 50 mls @ 100 mls/hr 10/03/17 10:00 10/04/17 09: 47 Ceftriaxone 1 Gm-D5w Bag IVPB 100 mls/hr DAILY PORTIA Administration Metronidazole 500 mg in 100 mls @ 100 mls/hr 10/03/17 09:00 10/04/17 09:46 Flagyl 500mg Premixed Ivpb - IVPB 100 mls/hr Q6H-IV PORTIA Administration Sodium Chloride 1,000 mls @ 125 mls/hr 10/03/17 15:37 10/04/17 02:10 Normal Saline - IV 125 mls/hr ASDIR PORTIA Administration Nicotine 14 mg 10/03/17 10:00 10/04/17 09:46 Nicoderm Patch - TD 14 mg DAILY PORTIA Administration Oxycodone HCl 5 mg 10/03/17 04:45 10/03/17 22:57 Roxicodone - PO 5 mg Q6H PRN Administration PAIN Pantoprazole Sodium 20 mg 10/03/17 10:00 10/04/17 09:46 Protonix - PO 20 mg DAILY PORTIA Administration Senna 2 tab 10/03/17 10:00 10/04/17 09:45 Senna - PO 2 tab DAILY PORTIA Administration MRCP: IMPRESSION: - 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 - Cholelithiasis with marked thickening of the gallbladder wall is possibly secondary to chronic hepatocellular disease. Correlation with HIDA scan is needed to exclude cholecystitis. No choledocholithiasis or pancreaticobiliary ductal dilatation. - Scattered tiny foci of arterial hepatic enhancement with no corresponding T2 signal abnormality or restricted diffusion statistically likely representing regenerative nodules in the setting of liver cirrhosis however dysplastic nodules cannot be completely excluded and continued follow-up is recommended. - 3 hepatic lesions the largest measuring 1.4 cm, best appreciated on the postcontrast images after the arterial phase and not clearly seen on the arterial phase could represent arterially enhancing lesions with rapid washout. In view of the liver cirrhosis, early HCC cannot be completely excluded. Correlation with alpha-fetoprotein level is needed and continued short-term follow-up is recommended. - Nonspecific Prominent lesser sac and ning hepatis lymph nodes. - Nonspecific 4-5 mm pancreatic head cysts. The differential diagnoses include parenchymal cyst, pseudocyst or early cystic neoplasm. Continued follow-up is recommended. - Significant aortoiliac atherosclerotic disease with apparent high-grade stenosis at the origin of the iliac arteries. Correlate with clinical history of buttock claudication - Leriche syndrome. ASSESSMENT/PLAN: 61F w/ hx of HTN and alcohol abuse, who presented to the hospital for back pain and atypical chest pain, was found to have gallbladder edema on ct and was admitted to [facility] for further evaluation. # Back pain possibly 2/2 cholecystitis * worsening Tbili, improving transaminitis and ALP * NPO * NS @ 125 cc/hr * continue Ceftriaxone 1gm IVBP daily and flagyl 500mg q6h per ID (day 2) * MRCP: cirrhosis, cholelithiasis w/ marked gallbladder thickening, can't r/o cholecystitis, no evidence of choledocolithiasis. 3 hepatic lesions, possibly due to HCC. pancreatic head cysts, unclear etiology. significant atherosclerotic disease of b/l iliac arteries * GI, surgery, and ID recs appreciated. daily PT, CMP, and direct bili. EGD, lactulose to 4 BM/day. * f/u AFP, CA-19-9, hepatitis panel * HIV negative * oncology consulted, f/u recs # Atypical Chest pain- possibly referred pain 2/2 cholecystitis * Unlikely ACS. No troponinemia, no signs of ischemia on EKG, CXR negative, CTA negative # TYLER- pre-renal 2/2 UTI * resolving, creatinine of 0.9, down from 1.1 * FeNa of 0.3% consistent with pre-renal etiology * continue IVF NS @125 cc/hr * Avoid nephrotoxic agents * continue ceftriaxone and flagyl per ID (day 2) * UA: 2+ leukocyte esterase, 45 wbc, moderate bacteria # Peripheral neuralgia * continue home gabapentin # HTN- controlled * continue home amlodipine # H/O thrombocytopenia likely 2/2 Alcohol abuse vs. essential * Avoid ASA * stop heparin if Plt less than 50,000 # Alcohol abuse * counselled # Nicotine abuse * counselled * Nicotine patch # FEN/ppx * NS 125 CC /hr * E: monitor * N: NPO FOR NOW * SCDS on both legs * protonix -You Malone MD PGY1 Visit type - Emergency Visit Emergency Visit: Yes ED Registration Date: 10/03/17 Care time: The patient presented to the Emergency Department on the above date and was hospitalized for further evaluation of their emergent condition. - New Patient This patient is new to me today: No - Critical Care Critical Care patient: No
--- NOTE | 2017-10-04 15:35 | CONSULT ---
Consult Consult Specialty:: Oncology - History of Present Illness History of Present Illness: 61F with a PMH of HTN and neuralgia who presents to the ED via EMS for chest pressure and back pain. The patient states that her back pain started 20 minutes before her presentation and is accompanied with back spasms, but she states that they are separately occurring. She currently is only complaining of back spasms. She denies any other complaints. No current CP, SOB, fever, chills , nausea, vomiting. - History Source History Provided By: Patient, Medical Record - Past Medical History Hepatobiliary: Yes: Cholelithiasis, Other (Alcoholism with suspected advanced alcoholic liver disease) ...: No Psych: Yes: Addictions (alcoholism) - Past Surgical History Past Surgical History: Yes: Colonoscopy, - Alcohol/Substance Use Hx Alcohol Use: Yes - Smoking History Smoking history: Current every day smoker Have you smoked in the past 12 months: No Aproximately how many cigarettes per day: 5 - Social History Usual Living Arrangement: With Spouse ADL: Independent Occupation: unemployed History of Recent Travel: No Home Medications - Allergies Allergies/Adverse Reactions: Allergies Allergy/AdvReac Type Severity Reaction Status Date / Time Fish Containing Products Allergy Verified 10/04/17 05:09 - Home Medications Home Medications: Ambulatory Orders Amlodipine Besylate [Norvasc -] 10 mg PO DAILY 10/02/17 Baclofen [Lioresal -] 10 mg PO DAILY 10/02/17 Docusate Sodium [Colace -] 200 mg PO HS 10/02/17 Gabapentin [Neurontin -] 300 mg PO Q8H 10/02/17 Menthol [Bengay Ultra Strength] 1 each TP DAILY 10/02/17 Omeprazole Magnesium [Prilosec Otc] 20 mg PO DAILY 10/02/17 Oxycodone HCl [Roxicodone -] 5 mg PO Q6H 10/02/17 Sennosides [Senna] 17.2 mg PO DAILY 10/02/17 Family Disease History - Family Disease History Family Disease History: CA: Mother (breast cancer) Physical Exam Vital Signs: Vital Signs Temperature 99 F 10/04/17 14:39 Pulse Rate 86 10/04/17 14:39 Respiratory Rate 18 10/04/17 14:39 Blood Pressure 109/66 10/04/17 14:39 O2 Sat by Pulse Oximetry (%) 95 10/04/17 09:00 Constitutional: Yes: Calm, Mild Distress, Thin Eyes: Yes: Conjunctiva Clear HENT: Yes: Atraumatic, Normocephalic Neck: Yes: Supple, Trachea Midline Respiratory: Yes: Regular, CTA Bilaterally Gastrointestinal: Yes: Normal Bowel Sounds, Tenderness Extremities: Yes: WNL Edema: No Labs: CBC, BMP 10/04/17 05:35 10/04/17 05:35 Imaging - Results Cat Scan: Report Reviewed Ultrasound: Report Reviewed MRI: Report Reviewed Assessment/Plan Possible HCC: 3 lesions <1.5cm AFP HCV VL PT/PTT calculate Child Ramirez score (await INR), last values makes her B. will need repeat imaging in a close f/u as an OP once acute issues resolve. Cirrhosis/gastric varices gi c/s reviewed thrombocytopenia: in the setting of cirrhosis. Acute cholecystitis: Rx per Surgery/GI
[2017-10-04] MEDS: oxyCODONE HCL 5 MG TABLET PO PRN (16:26)
[2017-10-04] MEDS: DOCUSATE SODIUM 100 MG CAPSULE (FP) PO SCH (22:01)
--- NOTE | 2017-10-04 23:24 | PN ---
Teaching Attending Note Name of Resident: You Maolne ATTENDING PHYSICIAN STATEMENT I saw and evaluated the patient. I reviewed the resident's note and discussed the case with the resident. I agree with the resident's findings and plan as documented. SUBJECTIVE: Denies any abdominal pain but as per patient comes and goes. OBJECTIVE: Vital Signs Temperature 98.1 F 10/04/17 18:52 Pulse Rate 69 10/04/17 18:52 Respiratory Rate 18 10/04/17 18:52 Blood Pressure 118/68 10/04/17 18:52 O2 Sat by Pulse Oximetry (%) 95 10/04/17 09:00 CBCD WBC 6.6 K/mm3 (4.0-10.0) 10/04/17 05:35 RBC 3.82 M/mm3 (3.60-5.2) 10/04/17 05:35 Hgb 11.1 GM/dL (10.7-15.3) 10/04/17 05:35 Hct 33.7 % (32.4-45.2) 10/04/17 05:35 MCV 88.3 fl (80-96) 10/04/17 05:35 MCHC 33.0 g/dl (32.0-36.0) 10/04/17 05:35 RDW 13.0 % (11.6-15.6) 10/04/17 05:35 Plt Count 112 K/MM3 (134-434) L D 10/04/17 05:35 MPV 8.6 fl (7.5-11.1) 10/04/17 05:35 CMP Sodium 140 mmol/L (136-145) 10/04/17 05:35 Potassium 4.0 mmol/L (3.5-5.1) 10/04/17 05:35 Chloride 109 mmol/L (98-107) H 10/04/17 05:35 Carbon Dioxide 21 mmol/L (21-32) 10/04/17 05:35 Anion Gap 10 (8-16) 10/04/17 05:35 BUN 16 mg/dL (7-18) 10/04/17 05:35 Creatinine 0.9 mg/dL (0.55-1.02) 10/04/17 05:35 Creat Clearance w eGFR > 60 (>60) 10/04/17 05:35 Random Glucose 76 mg/dL (74-106) D 10/04/17 05:35 Calcium 9.1 mg/dL (8.5-10.1) 10/04/17 05:35 Total Bilirubin 2.7 mg/dL (0.2-1.0) H 10/04/17 05:35 AST 63 U/L (15-37) H D 10/04/17 05:35 ALT 49 U/L (12-78) 10/04/17 05:35 Alkaline Phosphatase 135 U/L (45-117) H 10/04/17 05:35 Total Protein 7.9 g/dl (6.4-8.2) 10/04/17 05:35 Albumin 2.6 g/dl (3.4-5.0) L 10/04/17 05:35 CARDIAC ENZYMES Creatine Kinase 80 IU/L (26-192) 10/03/17 05:47 Troponin I < 0.02 ng/ml (0.00-0.05) 10/03/17 05:47 Current Medications Generic Name Dose Route Start Last Admin Trade Name Freq PRN Reason Stop Dose Admin Acetaminophen 650 mg 10/03/17 04:00 Tylenol - PO Q6H PRN FEVER OR PAIN Amlodipine Besylate 10 mg 10/03/17 10:00 10/04/17 09:45 Norvasc - PO 10 mg DAILY [facility] Administration Baclofen 10 mg 10/03/17 10:00 10/04/17 09:46 Lioresal - PO 10 mg DAILY [facility] Administration Docusate Sodium 200 mg 10/03/17 22:00 10/04/17 22:01 Colace - PO 200 mg HS [facility] Administration Gabapentin 300 mg 10/03/17 06:00 10/04/17 22:01 Neurontin - PO 300 mg TID [facility] Administration CEFTRIAXONE 1 G/50 ML PREMIX 50 mls @ 100 mls/hr 10/03/17 10:00 10/04/17 09: 47 Ceftriaxone 1 Gm-D5w Bag IVPB 100 mls/hr DAILY [facility] Administration Metronidazole 500 mg in 100 mls @ 100 mls/hr 10/03/17 09:00 10/04/17 22:01 Flagyl 500mg Premixed Ivpb - IVPB 100 mls/hr Q6H-IV [facility] Administration Sodium Chloride 1,000 mls @ 125 mls/hr 10/03/17 15:37 10/04/17 02:10 Normal Saline - IV 125 mls/hr ASDIR [facility] Administration Nicotine 14 mg 10/03/17 10:00 10/04/17 09:46 Nicoderm Patch - TD 14 mg DAILY [facility] Administration Oxycodone HCl 5 mg 10/03/17 04:45 10/04/17 16:26 Roxicodone - PO 5 mg Q6H PRN Administration PAIN Pantoprazole Sodium 20 mg 10/03/17 10:00 10/04/17 09:46 Protonix - PO 20 mg DAILY [facility] Administration Senna 2 tab 10/03/17 10:00 10/04/17 09:45 Senna - PO 2 tab DAILY [facility] Administration Home Medications Medication Instructions Recorded Amlodipine Besylate [Norvasc -] 10 mg PO DAILY 10/02/17 Baclofen [Lioresal -] 10 mg PO DAILY 10/02/17 Docusate Sodium [Colace -] 200 mg PO HS 10/02/17 Gabapentin [Neurontin -] 300 mg PO Q8H 10/02/17 Menthol [Bengay Ultra Strength] 1 each TP DAILY 10/02/17 Omeprazole Magnesium [Prilosec Otc] 20 mg PO DAILY 10/02/17 Oxycodone HCl [Roxicodone -] 5 mg PO Q6H 10/02/17 Sennosides [Senna] 17.2 mg PO DAILY 10/02/17 PE: per resident's note CTA of chest/abd pelvis showed abnl gallbladder MRCP showed liver cirrhosis with varices, cholelithiasis with thickened gallbladder wall, iliac artery stenosis, no evidence of choledocolithiasis. 3 hepatic lesions, possibly due to HCC. pancreatic head cysts, unclear etiology. significant atherosclerotic disease of b/l iliac arteries ASSESSMENT AND PLAN: Patient is a 61F with a PMHx of HTN and peripheral neuropathy who presents to the ED via EMS for chest pressure and back pain #Acute cholecystitis with improving transaminitis and ALP, NPO, IVF continue , on IV antibiotic Ceftriaxone 1gm IVBP daily and flagyl 500mg q6h per ID (day 2) . trend LFts, MRCP reoported 3 hepatic lesions will get GI, surgery, and ID and oncology on board . daily PT, CMP, and direct bili. EGD, lactulose to 4 BM/day. ordered AFP, CA-19-9, hepatitis panel, HIV negative # Atypical Chest pain unlikely ACS. no signs of ischemia on EKG, CXR negative, CTA negative # TYLER-on ivf continue # Peripheral neuralgia continue home gabapentin # HTN- controlled continue home amlodipine # H/O thrombocytopenia due to alcohol use , avoid ASA # Alcohol abuse counselled # Nicotine abuse on Nicotine patch DVT px: SCDS
[2017-10-05] MEDS: METRONIDAZOLE 500 MG PREMIXED 500 MG/100 ML MG IVPB SCH ×4 (03:05→20:42)
[2017-10-05] MEDS: GABAPENTIN 300 MG CAPSULE (FP) PO SCH ×4 (06:34→21:03)
[2017-10-05 08:57] LABS: BASO % 0.4 % (0-2.0); EOS % 0.6 % (0-4.5); HEMATOCRIT 31.2 % (32.4-45.2); HEMOGLOBIN 10.3 GM/dL (10.7-15.3); LYMPH % 21.5 % (8-40); MCH 29.3 pg (25.7-33.7); MCHC 32.9 g/dl (32.0-36.0); MEAN CELL VOLUME 88.8 fl (80-96); MEAN PLT VOLUME 8.6 fl (7.5-11.1); MONO % 11.3 % (3.8-10.2); NEUT % 66.2 % (42.8-82.8); PLATELET COUNT 115 K/MM3 (134-434); RBC 3.51 M/mm3 (3.60-5.2); RDW 13.2 % (11.6-15.6); WHITE BLOOD COUNT 5.2 K/mm3 (4.0-10.0)
[2017-10-05 09:07] LABS: INR 1.95 (0.82-1.09)
[2017-10-05 09:09] LABS: ACTIVATED PTT 32.1 SECONDS (26.9-34.4)
[2017-10-05 09:18] LABS: CHLORIDE 111 mmol/L (98-107); POTASSIUM 3.7 mmol/L (3.5-5.1); SODIUM 143 mmol/L (136-145)
[2017-10-05 09:26] LABS: ALBUMIN 2.5 g/dl (3.4-5.0); ALK PHOS 124 U/L (45-117); ANION GAP 12 (8-16); BILIRUBIN,DIRECT 1.1 mg/dL (0.0-0.2); BILIRUBIN,TOTAL 1.5 mg/dL (0.2-1.0); BLOOD UREA NITROGEN 16 mg/dL (7-18); CO2 20 mmol/L (21-32); CREATININE 0.8 mg/dL (0.55-1.02); GLUCOSE,RANDOM 78 mg/dL (74-106); SGOT/AST 50 U/L (15-37); SGPT/ALT 39 U/L (12-78); TOT PROT 7.8 g/dl (6.4-8.2)
[2017-10-05] MEDS: CEFTRIAXONE 1 G/50 ML PREMIX 50 ML IVPB SCH (09:39)
[2017-10-05] MEDS: PANTOPRAZOLE 20 MG TABLET (FP) PO SCH (09:40)
[2017-10-05] MEDS: amLODIPine BESYLATE 10 MG TABLET (FP) PO SCH (09:40)
[2017-10-05] MEDS: SENNOSIDES 8.6MG TABLET (FP) PO SCH (10:04)
[2017-10-05] MEDS: BACLOFEN 10 MG TABLET (FP) PO SCH (10:05)
[2017-10-05] MEDS: NICOTINE 14 MG/24 HOURS TOPICAL PATCH TD SCH (10:05)
--- NOTE | 2017-10-05 11:36 | PN ---
Progress Note, Physician History of Present Illness: Not in distress, awake and alert. No events - Current Medication List Current Medications: Active Medications Acetaminophen (Tylenol -) 650 mg PO Q6H PRN PRN Reason: FEVER OR PAIN Amlodipine Besylate (Norvasc -) 10 mg PO DAILY [facility] Last Admin: 10/05/17 09:40 Dose: 10 mg Baclofen (Lioresal -) 10 mg PO DAILY [facility] Last Admin: 10/05/17 10:05 Dose: 10 mg Docusate Sodium (Colace -) 200 mg PO HS [facility] Last Admin: 10/04/17 22:01 Dose: 200 mg Gabapentin (Neurontin -) 300 mg PO TID [facility] Last Admin: 10/05/17 06:39 Dose: Not Given CEFTRIAXONE 1 G/50 ML PREMIX (Ceftriaxone 1 Gm-D5w Bag) 50 mls @ 100 mls/hr IVPB DAILY [facility] Last Admin: 10/05/17 09:39 Dose: 100 mls/hr Metronidazole (Flagyl 500mg Premixed Ivpb -) 500 mg in 100 mls @ 100 mls/hr IVPB Q6H-IV [facility] Last Admin: 10/05/17 09:39 Dose: 100 mls/hr Sodium Chloride (Normal Saline -) 1,000 mls @ 125 mls/hr IV ASDIR [facility] Last Admin: 10/04/17 02:10 Dose: 125 mls/hr Nicotine (Nicoderm Patch -) 14 mg TD DAILY [facility] Last Admin: 10/05/17 10:05 Dose: 14 mg Oxycodone HCl (Roxicodone -) 5 mg PO Q6H PRN PRN Reason: PAIN Last Admin: 10/04/17 16:26 Dose: 5 mg Pantoprazole Sodium (Protonix -) 20 mg PO DAILY [facility] Last Admin: 10/05/17 09:40 Dose: 20 mg Senna (Senna -) 2 tab PO DAILY [facility] Last Admin: 10/05/17 10:04 Dose: Not Given - Objective Vital Signs: Vital Signs Temperature 98.7 F 10/05/17 06:00 Pulse Rate 77 10/05/17 06:00 Respiratory Rate 18 10/05/17 06:00 Blood Pressure 117/63 10/05/17 06:00 O2 Sat by Pulse Oximetry (%) 98 10/04/17 21:00 Constitutional: Yes: No Distress, Calm Eyes: Yes: Conjunctiva Clear Respiratory: Yes: Regular Gastrointestinal: Yes: Normal Bowel Sounds, Soft Neurological: Yes: Alert, Oriented Labs: CBC, BMP 10/05/17 06:00 10/05/17 06:00 INR, PTT INR 1.95 (0.82-1.09) H 10/05/17 06:00 Laboratory Results - last 24 hr 10/03/17 10/04/17 10/04/17 19:00 10:35 10:57 WBC RBC Hgb Hct MCV MCH MCHC RDW Plt Count MPV Neutrophils % Lymphocytes % Monocytes % Eosinophils % Basophils % PT with INR INR PTT (Actin FS) Sodium Potassium Chloride Carbon Dioxide Anion Gap BUN Creatinine Creat Clearance w eGFR Random Glucose Calcium Total Bilirubin Direct Bilirubin AST ALT Alkaline Phosphatase Total Protein Albumin Tumor Marker AFP 8.3 CA 19-9 Antigen 83 H Ur Leukocyte Esterase 2+ H 10/05/17 10/05/17 10/05/17 06:00 06:00 06:00 WBC 5.2 RBC 3.51 L Hgb 10.3 L Hct 31.2 L MCV 88.8 MCH 29.3 MCHC 32.9 RDW 13.2 Plt Count 115 L MPV 8.6 Neutrophils % 66.2 D Lymphocytes % 21.5 D Monocytes % 11.3 H Eosinophils % 0.6 D Basophils % 0.4 D PT with INR 22.00 H INR 1.95 H PTT (Actin FS) 32.1 Sodium 143 Potassium 3.7 Chloride 111 H Carbon Dioxide 20 L Anion Gap 12 BUN 16 Creatinine 0.8 Creat Clearance w eGFR > 60 Random Glucose 78 Calcium 9.0 Total Bilirubin 1.5 H D Direct Bilirubin 1.1 H D AST 50 H D ALT 39 D Alkaline Phosphatase 124 H Total Protein 7.8 Albumin 2.5 L Tumor Marker AFP CA 19-9 Antigen Ur Leukocyte Esterase Problem List - Problems (1) Liver cirrhosis Code(s): K74.60 - UNSPECIFIED CIRRHOSIS OF LIVER (2) Alcohol abuse Code(s): F10.10 - ALCOHOL ABUSE, UNCOMPLICATED (3) HCV antibody positive Code(s): R76.8 - OTHER SPECIFIED ABNORMAL IMMUNOLOGICAL FINDINGS IN SERUM (4) Cholelithiases Code(s): K80.20 - CALCULUS OF GALLBLADDER W/O CHOLECYSTITIS W/O OBSTRUCTION Assessment/Plan A 61 yof with alcoholic, and possibly HCV, liver cirrhosis w/o ascites, w/PHTN. Cholestatic picture on hepatic profile. Predominantly indirect bilirubin, in this case, also suggests advanced liver disease. Cholelithiasis HCV ab positive in 2016 Mildly elevated BUN and cr Normal Na, K EGD "few years ago [place] the [address] from the hospital" HCV viral load daily PT, CMP, with direct bili Lactulose to 4 bm/day AFP EGD afer 2 u FFP. Discussed with the patient
[2017-10-05] MEDS ORDERED: LACTULOSE 20 GM/30 ML UDC (FOR ORAL USE ONLY) PO PRN (14:00)
--- NOTE | 2017-10-05 14:03 | MSN ---
Progress Note (SOAP) - Subjective Chief Complaint: Back Pain, Chest Pressure History of Present Illness: Patient examined awake and supine this morning in no acute distress. Continues to complain of 8/10 Right sided abdominal pain, has not changed in location or intensity from yesterday. Had 1 soft loose stool yesterday without any blood, strange colors or odd smells. Denies any fevers, night sweats, chest pain, SOB, nausea or vomiting. Denies any burning, blood or itching with urination. No acute overnight events as per nursing. - Current Medications Current Medications: Active Medications Acetaminophen (Tylenol -) 650 mg PO Q6H PRN PRN Reason: FEVER OR PAIN Amlodipine Besylate (Norvasc -) 10 mg PO DAILY [facility] Last Admin: 10/05/17 09:40 Dose: 10 mg Baclofen (Lioresal -) 10 mg PO DAILY [facility] Last Admin: 10/05/17 10:05 Dose: 10 mg Docusate Sodium (Colace -) 200 mg PO HS [facility] Last Admin: 10/04/17 22:01 Dose: 200 mg Gabapentin (Neurontin -) 300 mg PO TID [facility] Last Admin: 10/05/17 06:39 Dose: Not Given CEFTRIAXONE 1 G/50 ML PREMIX (Ceftriaxone 1 Gm-D5w Bag) 50 mls @ 100 mls/hr IVPB DAILY [facility] Last Admin: 10/05/17 09:39 Dose: 100 mls/hr Metronidazole (Flagyl 500mg Premixed Ivpb -) 500 mg in 100 mls @ 100 mls/hr IVPB Q6H-IV [facility] Last Admin: 10/05/17 09:39 Dose: 100 mls/hr Sodium Chloride (Normal Saline -) 1,000 mls @ 125 mls/hr IV ASDIR [facility] Last Admin: 10/04/17 02:10 Dose: 125 mls/hr Lactulose (Cephulac (Oral Use)) 20 gm PO TID PRN PRN Reason: CONSTIPATION Nicotine (Nicoderm Patch -) 14 mg TD DAILY [facility] Last Admin: 10/05/17 10:05 Dose: 14 mg Oxycodone HCl (Roxicodone -) 5 mg PO Q6H PRN PRN Reason: PAIN Last Admin: 10/04/17 16:26 Dose: 5 mg Pantoprazole Sodium (Protonix -) 20 mg PO DAILY [facility] Last Admin: 12/27/17 09:40 Dose: 20 mg Senna (Senna -) 2 tab PO DAILY [facility] Last Admin: 10/05/17 10:04 Dose: Not Given - Objective Vital Signs: Vital Signs Temperature 99.1 F 10/05/17 10:00 Pulse Rate 83 10/05/17 10:00 Respiratory Rate 18 10/05/17 10:00 Blood Pressure 132/71 10/05/17 10:00 O2 Sat by Pulse Oximetry (%) 96 10/05/17 09:00 Constitutional: Yes: No Distress, Calm Eyes: Yes: EOM Intact, PERRL HENT: Yes: Other (Dry oropharynx with poor dentition) Cardiovascular: Yes: Regular Rate and Rhythm, S1, S2 Respiratory: Yes: CTA Bilaterally. No: Accessory Muscle Use, Cough, Poor Air Entry, Rales, Rhonchi, SOB, Wheezes Gastrointestinal: Yes: Soft, Hypoactive Bowel Sounds, Tenderness (Tenderness to Light touch in RLQ and Hypogastric region). No: Distention, Tenderness, Epigastrium, Vomiting Peripheral Pulses: Left Radial: 2+, Right Radial: 2+, Left Doralis Pedis: 2+, Right Dorsalis Pedis: 2+ Edema: No Neurological: Yes: Alert, Oriented, Cran Nerves II-XII Intact. No: Loss of Sensation (C5-T1 and L4-S1 Sensation grossly intact), Numbness ...Motor Strength: Yes: LUE (3/5 with Elbow Flexion and extension), RUE (3/5 with Elbow Flexion and extension), RLE (3/5 with Knee Flexion) Labs Lab Results: Laboratory Results - last 24 hr 10/04/17 10/04/17 10/05/17 10:35 10:57 06:00 WBC RBC Hgb Hct MCV MCH MCHC RDW Plt Count MPV Neutrophils % Lymphocytes % Monocytes % Eosinophils % Basophils % PT with INR 22.00 H INR 1.95 H PTT (Actin FS) 32.1 Sodium Potassium Chloride Carbon Dioxide Anion Gap BUN Creatinine Creat Clearance w eGFR Random Glucose Calcium Total Bilirubin Direct Bilirubin AST ALT Alkaline Phosphatase Total Protein Albumin Tumor Marker AFP 8.3 CA 19-9 Antigen 83 H 10/05/17 10/05/17 06:00 06:00 WBC 5.2 RBC 3.51 L Hgb 10.3 L Hct 31.2 L MCV 88.8 MCH 29.3 MCHC 32.9 RDW 13.2 Plt Count 115 L MPV 8.6 Neutrophils % 66.2 D Lymphocytes % 21.5 D Monocytes % 11.3 H Eosinophils % 0.6 D Basophils % 0.4 D PT with INR INR PTT (Actin FS) Sodium 143 Potassium 3.7 Chloride 111 H Carbon Dioxide 20 L Anion Gap 12 BUN 16 Creatinine 0.8 Creat Clearance w eGFR > 60 Random Glucose 78 Calcium 9.0 Total Bilirubin 1.5 H D Direct Bilirubin 1.1 H D AST 50 H D ALT 39 D Alkaline Phosphatase 124 H Total Protein 7.8 Albumin 2.5 L Tumor Marker AFP CA 19-9 Antigen Intake & Output 10/02/17 10/03/17 10/04/17 10/05/17 23:59 23:59 23:59 23:59 Intake Total 110 2805 0 Balance 110 2805 0 Weight 130 lb 133 lb Microbiology 10/04/17 10:35 Blood - Peripheral Venous Blood Culture - Preliminary NO GROWTH OBTAINED AFTER 24 HOURS, INCUBATION TO CONTINUE FOR 4 DAYS. 10/04/17 10:30 Blood - Peripheral Venous Blood Culture - Preliminary NO GROWTH OBTAINED AFTER 24 HOURS, INCUBATION TO CONTINUE FOR 4 DAYS. Imaging - Results Other: Report Reviewed (MRCP: IMPRESSION: - 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 - Cholelithiasis with marked thickening of the gallbladder wall is possibly secondary to chronic hepatocellular disease. Correlation with HIDA scan is needed to exclude cholecystitis. No choledocholithiasis or pancreaticobiliary ductal dilatation. - Scattered tiny foci of arterial hepatic enhancement with no corresponding T2 signal abnormality or restricted diffusion statistically likely representing regenerative nodules in the setting of liver cirrhosis however dysplastic nodules cannot be completely excluded and continued follow- up is recommended. - 3 hepatic lesions the largest measuring 1.4 cm, best appreciated on the postcontrast images after the arterial phase and not clearly seen on the arterial phase could represent arterially enhancing lesions with rapid washout. In view of the liver cirrhosis, early HCC cannot be completely excluded. Correlation with alpha-fetoprotein level is needed and continued short -term follow-up is recommended. - Nonspecific Prominent lesser sac and ning hepatis lymph nodes. - Nonspecific 4-5 mm pancreatic head cysts. The differential diagnoses include parenchymal cyst, pseudocyst or early cystic neoplasm. Continued follow-up is recommended. - Significant aortoiliac atherosclerotic disease with apparent high-grade stenosis at the origin of the iliac arteries. Correlate with clinical history of buttock claudication - Leriche syndrome.) Problem List - Problems (1) Abdominal pain Code(s): R10.9 - UNSPECIFIED ABDOMINAL PAIN (2) Alcohol abuse Code(s): F10.10 - ALCOHOL ABUSE, UNCOMPLICATED Assessment/Plan 61 y/o Female w/ PMHx of HTN and EtOH abuse presented for back pain and atypical chest pain on 10/02. Patient was found to have gallbladder edema on CT and was admitted on telemetry for further evaluation. 1. Back pain possibly 2/2 cholecystitis - NPO after midnight for EGD and HIDA scan; Will Follow GI/surgery rec's after imaging results - Tbili has improved to 1.5 (2.7 yesterday) - AST improved to 50 from 63, ALT improved to 39 from 49, Alk Phos improved to 124 from 135. - Continue Ceftriaxone 1gm IVBP daily (Day 3) - Continue Flagyl 500mg q6h per ID (Day 3) - MRCP on 10/03: Cirrhotic liver with extensive varices, Cholelithiasis w/ gallbladder wall thickening, cannot rule out cholecystitis, no evidence of choledocolithiasis. 3 hepatic lesions, cannot rule out HCC. Atherosclerotic disease of b/l iliac arteries - AFP: 8.3 ng/mL - Ca 19-9: 83 U/mL - HIV 1&2 Antibody screen negative, HIV P24 Antigen negative - Continue Daily PT, CMP and direct bili, Lactulose to 4 BM/day. - Oncology consult, Appreciate recs - GI and ID recs appreciated 2. Cirrhosis with Perigastric varices - GI Consult: EGD after 2 units of FFP, HCV viral load, daily PT, CMP with direct bili, Lactulose to 4 bm/day, AFP - Will also add 5mg Vitamin K PO as INR this morning was 1.95 - Consider Propranolol use to prevent esophageal bleeding pending EGD findings - Will need endoscopic ultrasound for pancreatic head cysts as an outpatient after discharge - Hepatitis Panel pending 3. Atypical Chest pain likely referred pain from cholecystitis - ACS Unlikely: No troponinemia, EKG shows no ST or T wave changes - CXR negative - CTA shows no signs of Aortic Aneurysm or dissection; Shows Abnormal Gallbladder with stones and Gallbladder wall edema, suspicious for Acute Cholecystitis - Currently no complaints of Chest pain, will continue to monitor 4. TYLER 2/2 Volume Depletion - Cr improved to 0.8 from 0.9 yesterday - FeNa of 0.3% consistent with pre-renal etiology - Continue IVF NS @125 cc/hr - Continue ceftriaxone and flagyl per ID (day 3) - Avoid nephrotoxic agents - Unlikely UTI as patient is Asx; UA showed 2+ leukocyte esterase, 45 wbc, moderate bacteria 5 Peripheral neuralgia - Patient denies any new complaints of numbness, tingling, weakness - Continue home dose Gabapentin 300mg PO Q8Hr 6. HTN - BP this morning of 117/63 - Over last 24 hrs, SBP ranged from 109-136, DBP ranged from 62-75 - Continue home dose Amlodipine 10mg PO Daily 7. Thrombocytopenia likely 2/2 Alcohol abuse vs Essential - Platelet count today is 115; Was 151 on 10/03, decreased to 112 on 10/04 - Hold ASA 8. Alcohol abuse - Counselled 9. Nicotine abuse - Counselled - Continue Nicoderm patch 14mg TD daily 10. FEN - Fluids: NS 100 CC /hr - Electrolytes: No current abnormalities, continue to monitor - Nutrition: Currently NPO 11. PPX - SCDs; Can consider Heparin after Surgery if INR can tolerate - Protonix 20 mg PO Daily Dispo: HIDA Scan pending tomorrow, will follow Surgery rec's after imaging, continue to monitor on Tele
[2017-10-05] MEDS: SODIUM CHLORIDE 1,000 ML IV SCH ×2 (15:09→19:47)
[2017-10-05] MEDS ORDERED: PHYTONADIONE 5 MG TABLET PO ONE (17:00)
--- NOTE | 2017-10-05 17:48 | PN ---
Physical Exam: SUBJECTIVE: Patient seen and examined. No acute events overnight. Pt complaining of right-sided abdominal pain that is 10/10 in severity. She denies n/v/c, and states that she had a loose BM. OBJECTIVE: Vital Signs Period Temp Pulse Resp BP Sys/Ayala Pulse Ox Last 24 Hr 96.1 F-99.1 F 69-83 18-18 112-132/62-71 96-98 GENERAL: elderly appearing female, lying in bed, alert HEENT: poor dentition NECK: Trachea midline, full range of motion, supple. LUNGS: Breath sounds equal, clear to auscultation bilaterally, no wheezes, no crackles, no accessory muscle use. HEART: Regular rate and rhythm, S1, S2 without murmur, rub or gallop. ABDOMEN: soft, moderately tender in RUQ and RLQ, ND, no organomegaly EXTREMITIES: 2+ pulses, warm, well-perfused, no edema. NEUROLOGICAL: Cranial nerves II through XII grossly intact. Normal speech, gait not observed. Laboratory Results - last 24 hr 10/04/17 10/04/17 10/05/17 10:35 10:57 06:00 WBC RBC Hgb Hct MCV MCH MCHC RDW Plt Count MPV Neutrophils % Lymphocytes % Monocytes % Eosinophils % Basophils % PT with INR 22.00 H INR 1.95 H PTT (Actin FS) 32.1 Sodium Potassium Chloride Carbon Dioxide Anion Gap BUN Creatinine Creat Clearance w eGFR Random Glucose Calcium Total Bilirubin Direct Bilirubin AST ALT Alkaline Phosphatase Total Protein Albumin Tumor Marker AFP 8.3 CA 19-9 Antigen 83 H 10/05/17 10/05/17 06:00 06:00 WBC 5.2 RBC 3.51 L Hgb 10.3 L Hct 31.2 L MCV 88.8 MCH 29.3 MCHC 32.9 RDW 13.2 Plt Count 115 L MPV 8.6 Neutrophils % 66.2 D Lymphocytes % 21.5 D Monocytes % 11.3 H Eosinophils % 0.6 D Basophils % 0.4 D PT with INR INR PTT (Actin FS) Sodium 143 Potassium 3.7 Chloride 111 H Carbon Dioxide 20 L Anion Gap 12 BUN 16 Creatinine 0.8 Creat Clearance w eGFR > 60 Random Glucose 78 Calcium 9.0 Total Bilirubin 1.5 H D Direct Bilirubin 1.1 H D AST 50 H D ALT 39 D Alkaline Phosphatase 124 H Total Protein 7.8 Albumin 2.5 L Tumor Marker AFP CA 19-9 Antigen Active Medications Generic Name Dose Route Start Last Admin Trade Name Freq PRN Reason Stop Dose Admin Acetaminophen 650 mg 10/03/17 04:00 Tylenol - PO Q6H PRN FEVER OR PAIN Amlodipine Besylate 10 mg 10/03/17 10:00 10/05/17 09:40 Norvasc - PO 10 mg DAILY [facility] Administration Baclofen 10 mg 10/03/17 10:00 10/05/17 10:05 Lioresal - PO 10 mg DAILY [facility] Administration Docusate Sodium 200 mg 10/03/17 22:00 10/04/17 22:01 Colace - PO 200 mg HS [facility] Administration Gabapentin 300 mg 10/03/17 06:00 10/05/17 14:59 Neurontin - PO 300 mg TID [facility] Administration CEFTRIAXONE 1 G/50 ML PREMIX 50 mls @ 100 mls/hr 10/03/17 10:00 10/05/17 09: 39 Ceftriaxone 1 Gm-D5w Bag IVPB 100 mls/hr DAILY [facility] Administration Metronidazole 500 mg in 100 mls @ 100 mls/hr 10/03/17 09:00 10/05/17 15:04 Flagyl 500mg Premixed Ivpb - IVPB 100 mls/hr Q6H-IV [facility] Administration Sodium Chloride 1,000 mls @ 125 mls/hr 10/03/17 15:37 10/05/17 15:09 Normal Saline - IV 125 mls/hr ASDIR [facility] Administration Lactulose 20 gm 10/05/17 14:00 Cephulac (Oral Use) PO TID PRN CONSTIPATION Nicotine 14 mg 10/03/17 10:00 10/05/17 10:05 Nicoderm Patch - TD 14 mg DAILY [facility] Administration Oxycodone HCl 5 mg 10/03/17 04:45 10/04/17 16:26 Roxicodone - PO 5 mg Q6H PRN Administration PAIN Pantoprazole Sodium 20 mg 10/03/17 10:00 10/05/17 09:40 Protonix - PO 20 mg DAILY [facility] Administration Senna 2 tab 10/03/17 10:00 10/05/17 10:04 Senna - PO Not Given DAILY [facility] ASSESSMENT/PLAN: 61F w/ hx of HTN and alcohol abuse, who presented to the hospital for back pain and atypical chest pain, was found to have gallbladder edema on ct and [facility]. # Back pain possibly 2/2 cholecystitis * improving LFTs * NPO after midnight for EGD and HIDA. If HIDA positive for cholecystitis, will likely proceed with surgery. Per GI, will start BB after EGD depending on size of varices. oral vitamin K given today to lower INR. 2U FFP given as well. * NS lowered to 100 cc/hr * continue Ceftriaxone 1gm IVBP daily and flagyl 500mg q6h per ID (day 3) * MRCP: cirrhosis, cholelithiasis w/ marked gallbladder thickening, can't r/o cholecystitis, no evidence of choledocolithiasis. 3 hepatic lesions, possibly due to HCC. pancreatic head cysts, unclear etiology. significant atherosclerotic disease of b/l iliac arteries * GI, surgery, and ID recs appreciated. daily PT, CMP, and direct bili. EUS of pancreatic cysts to be performed as outpt * continue lactulose, titrate to 4 BM/day. * AFP: 8.3, upper level of normal, f/u as outpt * CA-19-9: 83, elevated, f/u as outpt * hepatitis panel: pending * HIV negative * oncology consulted, recs appreciated # Atypical Chest pain- possibly referred pain 2/2 cholecystitis * Unlikely ACS. No troponinemia, no signs of ischemia on EKG, CXR negative, CTA negative # TYLER- pre-renal 2/2 volume depletion- resolved * creatinine of 0.8 * Avoid nephrotoxic agents * asymptomatic bacteriuria # Peripheral neuralgia * continue home gabapentin # HTN- controlled * continue home amlodipine # H/O thrombocytopenia likely 2/2 Alcohol abuse vs. essential * Avoid ASA * stop heparin if Plt less than 50,000 # Alcohol abuse * counselled # Nicotine abuse * counselled * Nicotine patch # FEN/ppx * NS 100 CC /hr * E: monitor * N: NPO after midnight * SCDS on both legs, will start heparin after surgery if INR returns to normal level * protonix Case discussed with attending, Dr. Boucher. -You Malone MD PGY1 Visit type - Emergency Visit Emergency Visit: Yes ED Registration Date: 10/03/17 Care time: The patient presented to the Emergency Department on the above date and was hospitalized for further evaluation of their emergent condition. - New Patient This patient is new to me today: No - Critical Care Critical Care patient: No
--- NOTE | 2017-10-05 18:07 | PN ---
Teaching Attending Note Name of Resident: You Malone ATTENDING PHYSICIAN STATEMENT I saw and evaluated the patient. I reviewed the resident's note and discussed the case with the resident. I agree with the resident's findings and plan as documented. SUBJECTIVE: No fever or chills. improved abd pain. no N/V OBJECTIVE: NAd , AAox3 Lungs : CTAb CV: RRR ABd: soft, ND, TTP in RUQ , will not allow evaluation of La's , no guarding Ext: no edema ASSESSMENT AND PLAN: 61 y/o lady with h/o HEp C, HTN, peripheral neuropathy, ETOH abuse , who presented with abd pain . 1- RUQ abd pain, symptoms and exam findings are suggestive of Acute cholecytitis . MRCP with gall bladder thickening but no definite evidence of acute inflammation - check HIDA - follow with surgery Recs - cont ceftriaxone and flagyl - IVF , decrease to 100 cc /hr 2- Possible cirrhosis on CT MRI. with perigastric varices. could be due to alcohol and/or Hep c - Hep c serology and viral load pending - for EGD tomorrow - lactulose - INR 1.9, will give Vit K today orally - FFP ordered fro before the procedure tomorrow 3- Liver lesions : ? not celar of etiology, AFP Nl. f/u as outpt 4- Pancreatic head lesions /cysts. with elevated Ca9-19 . - d/w GI, for EUS at a tertiary center as out pt 5- TYLER: resolved with hydration 6- asympromatic pyuria , no treatment indicated 7- HTN: cont Norvasc DVT PX : INR 1.9 . will start heparin after procedure tomorrow if INR is lower
[2017-10-05] MEDS: DOCUSATE SODIUM 100 MG CAPSULE (FP) PO SCH (21:03)
[2017-10-06] MEDS: SODIUM CHLORIDE 1,000 ML IV SCH ×2 (00:15→17:42)
[2017-10-06] MEDS: METRONIDAZOLE 500 MG PREMIXED 500 MG/100 ML MG IVPB SCH ×4 (02:11→20:44)
[2017-10-06] MEDS: GABAPENTIN 300 MG CAPSULE (FP) PO SCH ×3 (05:42→21:52)
[2017-10-06 06:11] LABS: HBsAG SCREEN Negative (Negative)
[2017-10-06 08:47] LABS: INR 1.86 (0.82-1.09)
[2017-10-06 08:51] LABS: BASO % 0.3 % (0-2.0); EOS % 1.5 % (0-4.5); HEMATOCRIT 30.6 % (32.4-45.2); HEMOGLOBIN 9.9 GM/dL (10.7-15.3); LYMPH % 31.8 % (8-40); MCHC 32.5 g/dl (32.0-36.0); MEAN CELL VOLUME 89.1 fl (80-96); MEAN PLT VOLUME 8.5 fl (7.5-11.1); NEUT % 54.4 % (42.8-82.8); PLATELET COUNT 113 K/MM3 (134-434); RBC 3.43 M/mm3 (3.60-5.2); RDW 13.3 % (11.6-15.6)
[2017-10-06] MEDS ORDERED: PROPOFOL 20 ML ONE (09:35)
[2017-10-06] MEDS ORDERED: LIDOCAINE HCL 2% (20ML MULTI-DOSE VIAL) NR ONE (09:35)
--- NOTE | 2017-10-06 10:03 | PROC ---
Endoscopy Procedure Endoscopy procedure completed. Please see scanned procedure report. Single, grade 1-2 esophageal varix w/o stigmata of recent, or impending bleeding. Start Nadalol 40 mg po qd, monitor HR. Stop, or reduce the dose to 20 mg/day if HR falls below 60 bpm. Portal hypertensive gastropathy was found. No biopsies taken due to INR 2 Repeat EGD in 1 year.
[2017-10-06] MEDS: SENNOSIDES 8.6MG TABLET (FP) PO SCH (10:58)
[2017-10-06] MEDS: amLODIPine BESYLATE 10 MG TABLET (FP) PO SCH (10:58)
[2017-10-06] MEDS: PANTOPRAZOLE 20 MG TABLET (FP) PO SCH (10:58)
[2017-10-06] MEDS: BACLOFEN 10 MG TABLET (FP) PO SCH (10:59)
[2017-10-06] MEDS ORDERED: PT OWN MED DRAWER 7, Y5N ONE (11:00)
[2017-10-06 11:13] LABS: ALBUMIN 2.7 g/dl (3.4-5.0); ANION GAP 11 (8-16); BILIRUBIN,TOTAL 1.1 mg/dL (0.2-1.0); BLOOD UREA NITROGEN 11 mg/dL (7-18); CALCIUM 8.9 mg/dL (8.5-10.1); CHLORIDE 108 mmol/L (98-107); CO2 22 mmol/L (21-32); CREATININE 0.7 mg/dL (0.55-1.02); GLUCOSE,RANDOM 110 mg/dL (74-106); POTASSIUM 3.2 mmol/L (3.5-5.1); SGOT/AST 40 U/L (15-37); SGPT/ALT 33 U/L (12-78); SODIUM 141 mmol/L (136-145); TOT PROT 7.8 g/dl (6.4-8.2)
[2017-10-06] MEDS: NICOTINE 14 MG/24 HOURS TOPICAL PATCH TD SCH (11:27)
[2017-10-06 11:37] LABS: ALK PHOS 111 U/L (45-117)
[2017-10-06] MEDS: CEFTRIAXONE 1 G/50 ML PREMIX 50 ML IVPB SCH (12:06)
--- NOTE | 2017-10-06 13:10 | MSN ---
Progress Note (SOAP) - Subjective Chief Complaint: Back Pain, Chest Pressure History of Present Illness: Patient examined awake, while supine this morning in no acute distress. She has been NPO since midnight. Continues to complain of 8/10 abdominal pain that is more diffuse today. Additionally complains of bilateral, 7/10, anterior lower extremity pain from the mid calf up to the knees that started over night but has since resolved with Tylenol. Did not feel a fever but had a temp of 100 over the last 24 hours. Did not have a BM yesterday. Denies any chills, night sweats, chest pain, SOB, nausea or vomiting. Denies any burning, blood or itching with urination. No other acute overnight events as per nursing. - Current Medications Current Medications: Active Medications Acetaminophen (Tylenol -) 650 mg PO Q6H PRN PRN Reason: FEVER OR PAIN Last Admin: 10/05/17 21:02 Dose: 650 mg Amlodipine Besylate (Norvasc -) 10 mg PO DAILY [facility] Last Admin: 10/06/17 10:58 Dose: Not Given Baclofen (Lioresal -) 10 mg PO DAILY [facility] Last Admin: 10/06/17 10:59 Dose: Not Given Docusate Sodium (Colace -) 200 mg PO HS [facility] Last Admin: 10/05/17 21:03 Dose: 200 mg Gabapentin (Neurontin -) 300 mg PO TID [facility] Last Admin: 10/06/17 05:42 Dose: Not Given CEFTRIAXONE 1 G/50 ML PREMIX (Ceftriaxone 1 Gm-D5w Bag) 50 mls @ 100 mls/hr IVPB DAILY [facility] Last Admin: 10/06/17 12:06 Dose: 100 mls/hr Metronidazole (Flagyl 500mg Premixed Ivpb -) 500 mg in 100 mls @ 100 mls/hr IVPB Q6H-IV [facility] Last Admin: 10/06/17 11:05 Dose: 100 mls/hr Sodium Chloride (Normal Saline -) 1,000 mls @ 100 mls/hr IV ASDIR [facility] Last Admin: 10/06/17 00:15 Dose: 100 mls/hr Lactulose (Cephulac (Oral Use)) 20 gm PO TID [facility] Nicotine (Nicoderm Patch -) 14 mg TD DAILY [facility] Last Admin: 10/06/17 11:27 Dose: 14 mg Oxycodone HCl (Roxicodone -) 5 mg PO Q6H PRN PRN Reason: PAIN Last Admin: 10/04/17 16:26 Dose: 5 mg Pantoprazole Sodium (Protonix -) 20 mg PO DAILY [facility] Last Admin: 10/06/17 10:58 Dose: Not Given Senna (Senna -) 2 tab PO DAILY [facility] Last Admin: 10/06/17 10:58 Dose: Not Given - Objective Vital Signs: Vital Signs Temperature 97.9 F 10/06/17 10:01 Pulse Rate 66 10/06/17 10:31 Respiratory Rate 23 10/06/17 10:31 Blood Pressure 126/72 10/06/17 10:31 O2 Sat by Pulse Oximetry (%) 100 10/06/17 10:31 Constitutional: Yes: No Distress, Calm Eyes: Yes: EOM Intact, PERRL HENT: Yes: Other (Moist Oropharynx with poor dentition). No: Pharyngeal Erythema Cardiovascular: Yes: Regular Rate and Rhythm, S1, S2 Respiratory: Yes: CTA Bilaterally Gastrointestinal: Yes: Normal Bowel Sounds, Soft, Tenderness (to Light palpation in RUQ and LUQ; to Deep palpation in Hypogastric region), Other ( Positive Dublin sign). No: Distention Extremities: Yes: Calf Tenderness (Bilateral, Anterior Mid-Calf tenderness to touch), Other (Negative Hommans sign). No: Cold, Cyanosis, Delayed Capillary Refill, Erythema, Pallor Peripheral Pulses: Left Doralis Pedis: 2+, Right Dorsalis Pedis: 2+ Edema: No (No Lower Extremity Edema) Neurological: Yes: Alert, Oriented, Cran Nerves II-XII Intact. No: Loss of Sensation (C5-T1 and L4-S1 grossly intact), Numbness ...Motor Strength: Yes: LUE (3/5 Elbow flexion and extension), RUE (3/5 Elbow flexion and extension) Labs Lab Results: Laboratory Results - last 24 hr 10/05/17 10/05/17 10/06/17 06:00 20:00 07:00 WBC RBC Hgb Hct MCV MCH MCHC RDW Plt Count MPV Neutrophils % Lymphocytes % Monocytes % Eosinophils % Basophils % PT with INR 21.00 H INR 1.86 H Sodium Potassium Chloride Carbon Dioxide Anion Gap BUN Creatinine Creat Clearance w eGFR Random Glucose Calcium Total Bilirubin Direct Bilirubin AST ALT Alkaline Phosphatase Total Protein Albumin Vitamin B12 Hep Bs Antigen Negative Hep Bs Antibody, Quant <3.1 L Blood Type A POSITIVE Antibody Screen Negative 10/06/17 10/06/17 10/06/17 07:00 07:00 07:00 WBC 4.0 RBC 3.43 L Hgb 9.9 L Hct 30.6 L MCV 89.1 MCH 29.0 MCHC 32.5 RDW 13.3 Plt Count 113 L MPV 8.5 Neutrophils % 54.4 Lymphocytes % 31.8 D Monocytes % 12.0 H Eosinophils % 1.5 D Basophils % 0.3 PT with INR INR Sodium 141 Cancelled Potassium 3.2 L Cancelled Chloride 108 H Cancelled Carbon Dioxide 22 Cancelled Anion Gap 11 Cancelled BUN 11 D Cancelled Creatinine 0.7 Cancelled Creat Clearance w eGFR > 60 Cancelled Random Glucose 110 H D Cancelled Calcium 8.9 Cancelled Total Bilirubin 1.1 H D Cancelled Direct Bilirubin 0.6 H D AST 40 H Cancelled ALT 33 Cancelled Alkaline Phosphatase 111 Cancelled Total Protein 7.8 Cancelled Albumin 2.7 L Cancelled Vitamin B12 914 Cancelled Hep Bs Antigen Hep Bs Antibody, Quant Blood Type Antibody Screen Intake & Output 10/03/17 10/04/17 10/05/17 10/06/17 23:59 23:59 23:59 23:59 Intake Total 110 2805 1970 1400 Output Total 250 Balance 110 2805 1720 1400 Weight 133 lb Microbiology 10/04/17 10:35 Blood - Peripheral Venous Blood Culture - Preliminary NO GROWTH OBTAINED AFTER 48 HOURS, INCUBATION TO CONTINUE FOR 3 DAYS. 10/04/17 10:30 Blood - Peripheral Venous Blood Culture - Preliminary NO GROWTH OBTAINED AFTER 48 HOURS, INCUBATION TO CONTINUE FOR 3 DAYS. Imaging - Results Other: Report Reviewed (Endoscopy on 10/[address] Vasquez: Single, grade 1-2 esophageal varix w/o stigmata of recent, or impending bleeding. Portal hypertensive gastropathy was found. No biopsies taken due to INR 2.) Problem List - Problems (1) Abdominal pain Code(s): R10.9 - UNSPECIFIED ABDOMINAL PAIN (2) Alcohol abuse Code(s): F10.10 - ALCOHOL ABUSE, UNCOMPLICATED Assessment/Plan 61 y/o Female w/ PMHx of HTN and EtOH abuse presented for back pain and atypical chest pain on 10/02. Patient was found to have gallbladder edema on CT and was admitted on telemetry for further evaluation. Patient has been NPO since midnight pending HIDA Scan. 1. Back pain possibly 2/2 cholecystitis - NPO since midnight for pending HIDA scan; Will Follow surgery rec's after imaging results - Tbili has improved to 1.1 from 1.5, Direct Bilirubin improved to 0.6 from 1.1 - AST improved to 40 from 50, ALT improved to 33 from 39, Alk Phos improved to 111 from 124 - Continue Ceftriaxone 1gm IVBP daily (Day 5) - Continue Flagyl 500mg q6h per ID (Day 5) - MRCP on 10/03: Cirrhotic liver with extensive varices, Cholelithiasis w/ gallbladder wall thickening - AFP: 8.3 ng/mL - Ca 19-9: 83 U/mL - HIV 1&2 Antibody screen negative, HIV P24 Antigen negative - Continue Daily PT, CMP and direct bili, Lactulose to 4 BM/day. - Oncology consult, Appreciate recs - GI and ID recs appreciated 2. Cirrhosis with PeriGastric varices - 5mg Vitamin K PO was given last night, INR this morning was 1.86 (1.95 yesterday) - EGD on 10/06: Single, grade 1-2 esophageal varix w/o stigmata of recent, or impending bleeding. Portal hypertensive gastropathy. No biopsies taken due to INR. - GI recommends starting Nadalol 40mg PO QD, Repeat EGD in 1 year - Will need endoscopic ultrasound for pancreatic head cysts as an outpatient after discharge - Hepatitis Panel pending 3. Atypical Chest pain likely referred pain from cholecystitis - Currently no complaints of Chest pain, will continue to monitor - ACS Unlikely: No troponinemia, EKG shows no ST or T wave changes - CXR negative - CTA shows no signs of Aortic Aneurysm or dissection; Shows Abnormal Gallbladder with stones and Gallbladder wall edema, suspicious for Acute Cholecystitis 4. TYLER 2/2 Volume Depletion has resolved - Cr improved to 0.7 from 0.8 yesterday - Continue IVF NS @100 cc/hr - Continue ceftriaxone and flagyl per ID (day 5) - Avoid nephrotoxic agents - Unlikely UTI as patient is Asx; UA showed 2+ leukocyte esterase, 45 wbc, moderate bacteria 5 Peripheral neuralgia - No new complaints of numbness, tingling, weakness - Continue home dose Gabapentin 300mg PO Q8Hr 6. HTN - BP this morning of 114/74 - Over last 24 hrs, SBP ranged from 107-132, DBP ranged from 57-74 - Decrease Amlodipine 10mg PO Daily to 5mg since we are adding on Nadalol 7. Thrombocytopenia likely 2/2 Alcohol abuse - Platelet count today is 113; Was 115 yesterday, Continue to monitor - Hold ASA 8. Alcohol abuse - Counselled 9. Nicotine abuse - Counselled - Continue Nicoderm patch 14mg TD daily 10. FEN - Fluids: NS 100 CC /hr - Electrolytes: Hypokalemic at 3.2 this morning, will replete - Nutrition: Currently NPO 11. PPX - SCDs; Can consider Heparin after Surgery if INR can tolerate - Protonix 20 mg PO Daily Dispo: HIDA Scan pending, will follow Surgery rec's after imaging, continue to monitor on Tele
[2017-10-06] MEDS ORDERED: NADOLOL 40 MG TABLET (FP) PO SCH (14:00)
[2017-10-06] MEDS ORDERED: LACTULOSE 20 GM/30 ML UDC (FOR ORAL USE ONLY) PO SCH (14:00)
--- NOTE | 2017-10-06 14:04 | PN ---
Teaching Attending Note Name of Resident: You Malone ATTENDING PHYSICIAN STATEMENT I saw and evaluated the patient. I reviewed the resident's note and discussed the case with the resident. I agree with the resident's findings and plan as documented. SUBJECTIVE: No fever or chills. cont to have RUQ pain , no diarrhea OBJECTIVE: NAD, AAOx3 Lungs: CTAB CV: RRR ABd: soft, ND, TTP in RUQ , will not allow evaluation of La's , no guarding Ext: no edema ASSESSMENT AND PLAN: 61 y/o lady with h/o HEp C, HTN, peripheral neuropathy, ETOH abuse , who presented with abd pain . 1- RUQ abd pain, highly suspect acute cholecystitis - HIDA pending - cont ceftriaxone and flagyl - IVF 100 cc /hr 2- Possible cirrhosis on MRI. could be due to alcohol and/or Hep c - Hep c serology and viral load pending - EGD with grade 1-2 esophageal varices . start nadolol 40 mg/day - lactulose - Received Vit K and FFps for elevated INR 3- Liver lesions : ? not celar of etiology, AFP Nl. f/u as outpt 4- Pancreatic head lesions /cysts. with elevated Ca9-19 . - EUS at a tertiary center as out pt 5- TYLER: resolved with hydration 6- asympromatic pyuria , no treatment indicated 7- HTN: decrease norvasc to 5 mg daily , monitor BP with Nadolol DVT PX :DVT px
[2017-10-06] MEDS ORDERED: oxyCODONE HCL 5 MG TABLET PO PRN (14:38)
[2017-10-06] MEDS ORDERED: ACETAMINOPHEN 325 MG TABLET (FP) PO PRN (14:38)
[2017-10-06] MEDS ORDERED: POTASSIUM CHLORIDE 30 MEQ in SODIUM CHLORIDE 300 ML IVPB ONE (15:30)
[2017-10-06] MEDS ORDERED: KCL 10 MEQ IVPB 10 MEQ/100 ML INFUS.BAG IVPB SCH (15:30)
--- NOTE | 2017-10-06 17:24 | PN ---
Physical Exam: SUBJECTIVE: Patient seen and examined No acute events overnight. Pt complaining of slightly improved abdominal pain. She denies n/v/d/c. OBJECTIVE: Vital Signs Period Temp Pulse Resp BP Sys/Ayala Pulse Ox Last 24 Hr 97.6 F-100.0 F 66-80 16-24 107-134/57-74 96-100 GENERAL: elderly appearing female, lying in bed, alert HEENT: poor dentition NECK: Trachea midline, full range of motion, supple. LUNGS: Breath sounds equal, clear to auscultation bilaterally, no wheezes, no crackles, no accessory muscle use. HEART: Regular rate and rhythm, S1, S2 without murmur, rub or gallop. ABDOMEN: soft, moderately tender in upper quadrants, ND, no organomegaly EXTREMITIES: 2+ pulses, warm, well-perfused, no edema. NEUROLOGICAL: Cranial nerves II through XII grossly intact. Normal speech, gait not observed. Laboratory Results - last 24 hr 10/05/17 10/05/17 10/06/17 06:00 20:00 07:00 WBC RBC Hgb Hct MCV MCH MCHC RDW Plt Count MPV Neutrophils % Lymphocytes % Monocytes % Eosinophils % Basophils % PT with INR 21.00 H INR 1.86 H Sodium Potassium Chloride Carbon Dioxide Anion Gap BUN Creatinine Creat Clearance w eGFR Random Glucose Calcium Total Bilirubin Direct Bilirubin AST ALT Alkaline Phosphatase Total Protein Albumin Vitamin B12 Hep Bs Antigen Negative Hep Bs Antibody, Quant <3.1 L Blood Type A POSITIVE Antibody Screen Negative 10/06/17 10/06/17 10/06/17 07:00 07:00 07:00 WBC 4.0 RBC 3.43 L Hgb 9.9 L Hct 30.6 L MCV 89.1 MCH 29.0 MCHC 32.5 RDW 13.3 Plt Count 113 L MPV 8.5 Neutrophils % 54.4 Lymphocytes % 31.8 D Monocytes % 12.0 H Eosinophils % 1.5 D Basophils % 0.3 PT with INR INR Sodium 141 Cancelled Potassium 3.2 L Cancelled Chloride 108 H Cancelled Carbon Dioxide 22 Cancelled Anion Gap 11 Cancelled BUN 11 D Cancelled Creatinine 0.7 Cancelled Creat Clearance w eGFR > 60 Cancelled Random Glucose 110 H D Cancelled Calcium 8.9 Cancelled Total Bilirubin 1.1 H D Cancelled Direct Bilirubin 0.6 H D AST 40 H Cancelled ALT 33 Cancelled Alkaline Phosphatase 111 Cancelled Total Protein 7.8 Cancelled Albumin 2.7 L Cancelled Vitamin B12 914 Cancelled Hep Bs Antigen Hep Bs Antibody, Quant Blood Type Antibody Screen Active Medications Generic Name Dose Route Start Last Admin Trade Name Freq PRN Reason Stop Dose Admin Acetaminophen 650 mg 10/06/17 14:38 Tylenol - PO Q6H PRN FEVER OR PAIN Amlodipine Besylate 5 mg 10/07/17 10:00 Norvasc - PO DAILY [facility] Baclofen 10 mg 10/07/17 10:00 Lioresal - PO DAILY [facility] Docusate Sodium 200 mg 10/06/17 22:00 Colace - PO HS [facility] Gabapentin 300 mg 10/06/17 22:00 Neurontin - PO TID [facility] Heparin Sodium (Porcine) 5,000 unit 10/06/17 22:00 Heparin - SQ TID [facility] CEFTRIAXONE 1 G/50 ML PREMIX 50 mls @ 100 mls/hr 10/07/17 10:00 Ceftriaxone 1 Gm-D5w Bag IVPB DAILY [facility] Metronidazole 500 mg in 100 mls @ 100 mls/hr 10/06/17 15:00 Flagyl 500mg Premixed Ivpb - IVPB Q6H-IV [facility] Sodium Chloride 1,000 mls @ 100 mls/hr 10/06/17 14:38 Normal Saline - IV ASDIR [facility] Potassium Chloride 30 meq/ 315 mls @ 105 mls/hr 10/06/17 15:30 Sodium Chloride IVPB 10/06/17 18:29 ONCE ONE Lactulose 20 gm 10/06/17 22:00 Cephulac (Oral Use) PO TID [facility] Nadolol 40 mg 10/07/17 10:00 Corgard - PO DAILY [facility] Nicotine 14 mg 10/07/17 10:00 Nicoderm Patch - TD DAILY [facility] Oxycodone HCl 5 mg 10/06/17 14:38 Roxicodone - PO Q6H PRN PAIN Pantoprazole Sodium 20 mg 10/07/17 10:00 Protonix - PO DAILY [facility] Senna 2 tab 10/07/17 10:00 Senna - PO DAILY [facility] ASSESSMENT/PLAN: 61F w/ hx of HTN and alcohol abuse, who presented to the hospital for back pain and atypical chest pain, was found to have gallbladder edema on ct and [facility]. # Back pain possibly 2/2 cholecystitis * f/u HIDA. per Dr. Tejada, pt will need to be transferred to [facility] for surgery if she requires it. * EGD done by GI: Single, grade 1-2 esophageal varix w/o stigmata of recent, or impending bleeding. start nadolol. Repeat EGD to be done in 1 year * continue Ceftriaxone 1gm IVBP daily and flagyl 500mg q6h per ID (day 4) * MRCP: cirrhosis, cholelithiasis w/ marked gallbladder thickening, can't r/o cholecystitis, no evidence of choledocolithiasis. 3 hepatic lesions, possibly due to HCC. pancreatic head cysts, unclear etiology. significant atherosclerotic disease of b/l iliac arteries * GI, surgery, and ID recs appreciated. daily PT, CMP, and direct bili. EUS of pancreatic cysts to be performed as outpt * continue lactulose, titrate to 4 BM/day. * AFP: 8.3, upper level of normal, f/u as outpt * CA-19-9: 83, elevated, f/u as outpt * hepatitis panel: pending * HIV negative * oncology consulted, recs appreciated #normocytic anemia -Hgb of 9.9, down from 12 on admission -B12: 914, upper level of normal -folate: pending # Atypical Chest pain- possibly referred pain 2/2 cholecystitis * Unlikely ACS. No troponinemia, no signs of ischemia on EKG, CXR negative, CTA negative # TYLER- pre-renal 2/2 volume depletion- resolved # Peripheral neuralgia * continue home gabapentin # HTN- controlled * home amlodipine dose decreased to 5mg # H/O thrombocytopenia likely 2/2 Alcohol abuse vs. essential * Avoid ASA * stop heparin if Plt less than 50,000 # Alcohol abuse * counselled # Nicotine abuse * counselled * Nicotine patch # FEN/ppx * NS 100 CC /hr * E: potassium repleted * N: NPO for now * heparin 5000 TID * protonix Case discussed with attending, Dr. Boucher. -You Malone MD PGY1 Visit type - Emergency Visit Emergency Visit: Yes ED Registration Date: 10/03/17 Care time: The patient presented to the Emergency Department on the above date and was hospitalized for further evaluation of their emergent condition. - New Patient This patient is new to me today: No - Critical Care Critical Care patient: No
[2017-10-06] MEDS ORDERED: POTASSIUM CHLORIDE TABS 20 MEQ TABLET.ER (FP) PO ONE (17:40)
[2017-10-06] MEDS: DOCUSATE SODIUM 100 MG CAPSULE (FP) PO SCH (21:52)
[2017-10-06] MEDS: HEPARIN NA (PORCINE) 5,000 UNITS/ML 1ML VIAL SQ SCH (21:52)
[2017-10-06] MEDS: LACTULOSE 20 GM/30 ML UDC (FOR ORAL USE ONLY) PO SCH (21:52)
[2017-10-07] MEDS: METRONIDAZOLE 500 MG PREMIXED 500 MG/100 ML MG IVPB SCH ×4 (02:54→23:03)
[2017-10-07] MEDS: GABAPENTIN 300 MG CAPSULE (FP) PO SCH ×3 (06:46→23:04)
[2017-10-07] MEDS: HEPARIN NA (PORCINE) 5,000 UNITS/ML 1ML VIAL SQ SCH ×3 (06:46→23:04)
[2017-10-07] MEDS: SODIUM CHLORIDE 1,000 ML IV SCH ×2 (06:46→23:03)
[2017-10-07] MEDS: LACTULOSE 20 GM/30 ML UDC (FOR ORAL USE ONLY) PO SCH ×3 (06:46→23:20)
[2017-10-07 08:46] LABS: HEMATOCRIT 32.2 % (32.4-45.2); HEMOGLOBIN 10.5 GM/dL (10.7-15.3); MCH 29.1 pg (25.7-33.7); MCHC 32.7 g/dl (32.0-36.0); MEAN PLT VOLUME 8.3 fl (7.5-11.1); PLATELET COUNT 132 K/MM3 (134-434); RBC 3.62 M/mm3 (3.60-5.2); RDW 12.9 % (11.6-15.6); WHITE BLOOD COUNT 3.4 K/mm3 (4.0-10.0)
[2017-10-07 08:58] LABS: INR 2.17 (0.82-1.09); PROTHROMBIN TIME (PATIENT) 24.5 SEC (9.98-11.88)
[2017-10-07 09:14] LABS: ALBUMIN 2.5 g/dl (3.4-5.0); ANION GAP 9 (8-16); BILIRUBIN,DIRECT 0.6 mg/dL (0.0-0.2); BILIRUBIN,TOTAL 1.1 mg/dL (0.2-1.0); BLOOD UREA NITROGEN 10 mg/dL (7-18); CALCIUM 8.4 mg/dL (8.5-10.1); CHLORIDE 109 mmol/L (98-107); CO2 21 mmol/L (21-32); CREATININE 0.6 mg/dL (0.55-1.02); GLUCOSE,RANDOM 81 mg/dL (74-106); POTASSIUM 3.9 mmol/L (3.5-5.1); SGOT/AST 34 U/L (15-37); SGPT/ALT 28 U/L (12-78); SODIUM 139 mmol/L (136-145); TOT PROT 7.9 g/dl (6.4-8.2)
[2017-10-07 09:15] LABS: ALK PHOS 113 U/L (45-117)
[2017-10-07] MEDS ORDERED: CEFTRIAXONE 1 G/50 ML PREMIX 50 ML IVPB SCH (10:00)
[2017-10-07] MEDS ORDERED: PT OWN MED DRAWER 7, Y5N ONE (11:04)
[2017-10-07] MEDS: BACLOFEN 10 MG TABLET (FP) PO SCH (11:32)
[2017-10-07] MEDS: SENNOSIDES 8.6MG TABLET (FP) PO SCH ×2 (11:33→15:25)
[2017-10-07] MEDS: NADOLOL 40 MG TABLET (FP) PO SCH (11:33)
[2017-10-07] MEDS: amLODIPine BESYLATE 5 MG TABLET (FP) PO SCH (11:33)
[2017-10-07] MEDS: NICOTINE 14 MG/24 HOURS TOPICAL PATCH TD SCH (11:33)
[2017-10-07] MEDS: PANTOPRAZOLE 20 MG TABLET (FP) PO SCH (11:33)
--- NOTE | 2017-10-07 11:35 | PN ---
Progress Note (short form) - Note Progress Note: reports less abdominal pain hida scan report noted Vital Signs Period Temp Pulse Resp BP Sys/Ayala Pulse Ox Last 24 Hr 97.5 F-98.4 F 69-74 18-20 115-134/60-92 98-98 cor-rrr lungs clear abd soft,not distended, mild midepigastric/ruq pain to palpation ext no edema CBC, BMP 10/07/17 08:11 10/07/17 08:11 Microbiology 10/04/17 10:35 Blood - Peripheral Venous Blood Culture - Preliminary NO GROWTH OBTAINED AFTER 72 HOURS, INCUBATION TO CONTINUE FOR 2 DAYS. 10/04/17 10:30 Blood - Peripheral Venous Blood Culture - Preliminary NO GROWTH OBTAINED AFTER 72 HOURS, INCUBATION TO CONTINUE FOR 2 DAYS. a/p abdominal pain-?cholycystitis- continue rocephin/flagyl- surgery evaluation cirrhosis- prior hep c positive weight loss- HIV negative recent neck surgery Problem List - Problems (1) Abdominal pain Code(s): R10.9 - UNSPECIFIED ABDOMINAL PAIN (2) Liver cirrhosis Code(s): K74.60 - UNSPECIFIED CIRRHOSIS OF LIVER (3) Weight loss Code(s): R63.4 - ABNORMAL WEIGHT LOSS
--- NOTE | 2017-10-07 13:09 | PN ---
Progress Note, Physician History of Present Illness: Feels well, awake and alert. No events. - Current Medication List Current Medications: Active Medications Acetaminophen (Tylenol -) 650 mg PO Q6H PRN PRN Reason: FEVER OR PAIN Last Admin: 10/06/17 20:45 Dose: 650 mg Amlodipine Besylate (Norvasc -) 5 mg PO DAILY [facility] Last Admin: 10/07/17 11:33 Dose: 5 mg Baclofen (Lioresal -) 10 mg PO DAILY [facility] Last Admin: 10/07/17 11:32 Dose: 10 mg Docusate Sodium (Colace -) 200 mg PO HS [facility] Last Admin: 10/06/17 21:52 Dose: 200 mg Gabapentin (Neurontin -) 300 mg PO TID [facility] Last Admin: 10/07/17 06:46 Dose: 300 mg Heparin Sodium (Porcine) (Heparin -) 5,000 unit SQ TID [facility] Last Admin: 10/07/17 06:46 Dose: 5,000 unit CEFTRIAXONE 1 G/50 ML PREMIX (Ceftriaxone 1 Gm-D5w Bag) 50 mls @ 100 mls/hr IVPB DAILY [facility] Last Admin: 10/07/17 11:32 Dose: 100 mls/hr Metronidazole (Flagyl 500mg Premixed Ivpb -) 500 mg in 100 mls @ 100 mls/hr IVPB Q6H-IV [facility] Last Admin: 10/07/17 10:00 Dose: 100 mls/hr Sodium Chloride (Normal Saline -) 1,000 mls @ 100 mls/hr IV ASDIR [facility] Last Admin: 10/07/17 06:46 Dose: 100 mls/hr Lactulose (Cephulac (Oral Use)) 20 gm PO TID [facility] Last Admin: 10/07/17 06:46 Dose: 20 gm Nadolol (Corgard -) 40 mg PO DAILY [facility] Last Admin: 10/07/17 11:33 Dose: 40 mg Nicotine (Nicoderm Patch -) 14 mg TD DAILY [facility] Last Admin: 10/07/17 11:33 Dose: 14 mg Oxycodone HCl (Roxicodone -) 5 mg PO Q6H PRN PRN Reason: PAIN Pantoprazole Sodium (Protonix -) 20 mg PO DAILY [facility] Last Admin: 10/07/17 11:33 Dose: 20 mg Senna (Senna -) 2 tab PO DAILY [facility] - Objective Vital Signs: Vital Signs Temperature 97.5 F L 10/07/17 06:00 Pulse Rate 69 10/07/17 06:00 Respiratory Rate 18 10/07/17 06:00 Blood Pressure 118/92 10/07/17 06:00 O2 Sat by Pulse Oximetry (%) 98 10/06/17 21:00 Constitutional: Yes: No Distress, Calm Eyes: Yes: Conjunctiva Clear Neck: Yes: Supple Cardiovascular: Yes: Regular Rate and Rhythm Respiratory: Yes: Regular Gastrointestinal: Yes: Normal Bowel Sounds, Soft. No: Ascites, Distention, Tenderness, Tenderness, Epigastrium Neurological: Yes: Alert, Oriented Labs: CBC, BMP 10/07/17 08:11 10/07/17 08:11 INR, PTT INR 2.17 (0.82-1.09) H 10/07/17 08:11 Laboratory Results - last 24 hr 10/05/17 10/07/17 10/07/17 06:00 08:11 08:11 WBC 3.4 L RBC 3.62 Hgb 10.5 L Hct 32.2 L MCV 89.0 MCH 29.1 MCHC 32.7 RDW 12.9 Plt Count 132 L MPV 8.3 PT with INR 24.50 H INR 2.17 H Sodium Potassium Chloride Carbon Dioxide Anion Gap BUN Creatinine Creat Clearance w eGFR Random Glucose Calcium Total Bilirubin Direct Bilirubin AST ALT Alkaline Phosphatase Total Protein Albumin Hepatitis Be Antibody Negative Hepatitis Be Antigen Negative HCV Quantitation [id number] HCV RNA PCR log undercover cop/ml 4.893 10/07/17 08:11 WBC RBC Hgb Hct MCV MCH MCHC RDW Plt Count MPV PT with INR INR Sodium 139 Potassium 3.9 D Chloride 109 H Carbon Dioxide 21 Anion Gap 9 BUN 10 Creatinine 0.6 Creat Clearance w eGFR > 60 Random Glucose 81 D Calcium 8.4 L Total Bilirubin 1.1 H Direct Bilirubin 0.6 H AST 34 ALT 28 Alkaline Phosphatase 113 Total Protein 7.9 Albumin 2.5 L Hepatitis Be Antibody Hepatitis Be Antigen HCV Quantitation HCV RNA PCR log undercover cop/ml Problem List - Problems (1) Liver cirrhosis Code(s): K74.60 - UNSPECIFIED CIRRHOSIS OF LIVER (2) Alcohol abuse Code(s): F10.10 - ALCOHOL ABUSE, UNCOMPLICATED (3) HCV antibody positive Code(s): R76.8 - OTHER SPECIFIED ABNORMAL IMMUNOLOGICAL FINDINGS IN SERUM (4) Cholelithiases Code(s): K80.20 - CALCULUS OF GALLBLADDER W/O CHOLECYSTITIS W/O OBSTRUCTION Assessment/Plan continue nadalol, PPI, OK to advance diet if no further tests planned Surveillance EGD in 1 yesr
--- NOTE | 2017-10-07 18:46 | PN ---
Teaching Attending Note Name of Resident: You Malone ATTENDING PHYSICIAN STATEMENT I saw and evaluated the patient. I reviewed the resident's note and discussed the case with the resident. I agree with the resident's findings and plan as documented. SUBJECTIVE: abd pain has improved OBJECTIVE: NAD, AAOx3 Lungs: CTAB CV: RRR ABd: soft, ND, TTP in RUQ , NO guarding Ext: no edema ASSESSMENT AND PLAN: 61 y/o lady with h/o HEp C, HTN, peripheral neuropathy, ETOH abuse , who presented with abd pain . 1- RUQ abd pain, highly suspect acute cholecystitis - HIDA with no complete filling of gall bladder - d/w Surgery , no plan for Surgery here as pt is at high risk for complications - day 6 of Ceftriaxone and flagyl - start clears , if tolerated will advance diet na dstop IVF in am - d/w pt and daughter the possibility of transfer to [facility], agreed - case d/w medicine attending at [facility], further Recs to follow 2- Possible cirrhosis on MRI. could be due to alcohol and/or Hep c - EGD with grade 1-2 esophageal varices . cont nadolol 40 mg/day - lactulose 3- Liver lesions : not celar of etiology, AFP Nl. f/u as outpt 4- Pancreatic head lesions /cysts. with elevated Ca9-19 . - EUS at a tertiary center as out pt 5- TYLER: resolved with hydration, might stop IVF in am 6- Asympromatic pyuria , no treatment indicated 7- HTN: cont decreased dose of noravsc and nadolol DVT PX :DVT px Dispo : tryingto transfer to tertiary center , if possible .
--- NOTE | 2017-10-07 20:27 | PN ---
Physical Exam: SUBJECTIVE: Patient seen and examined No acute events overnight. Pt complaining of slightly improved abdominal pain. She denies n/v/d/c. She had one BM last night and one this am. OBJECTIVE: Vital Signs Period Temp Pulse Resp BP Sys/Ayala Pulse Ox Last 24 Hr 97.5 F-98.1 F 56-74 18-20 115-132/59-92 98-98 GENERAL: elderly appearing female, lying in bed, alert, in NAD HEENT: poor dentition NECK: Trachea midline, full range of motion, supple. LUNGS: Breath sounds equal, clear to auscultation bilaterally, no wheezes, no crackles, no accessory muscle use. HEART: Regular rate and rhythm, S1, S2 without murmur, rub or gallop. ABDOMEN: soft, moderately tender in RUQ, ND, no organomegaly EXTREMITIES: 2+ pulses, warm, well-perfused, no edema. NEUROLOGICAL: Cranial nerves II through XII grossly intact. Normal speech, gait not observed. Laboratory Results - last 24 hr 10/05/17 10/07/17 10/07/17 06:00 08:11 08:11 WBC 3.4 L RBC 3.62 Hgb 10.5 L Hct 32.2 L MCV 89.0 MCH 29.1 MCHC 32.7 RDW 12.9 Plt Count 132 L MPV 8.3 PT with INR 24.50 H INR 2.17 H Sodium Potassium Chloride Carbon Dioxide Anion Gap BUN Creatinine Creat Clearance w eGFR Random Glucose Calcium Total Bilirubin Direct Bilirubin AST ALT Alkaline Phosphatase Total Protein Albumin Hepatitis Be Antibody Negative Hepatitis Be Antigen Negative HCV Quantitation [id number] HCV RNA PCR log undercover cop/ml 4.893 10/07/17 08:11 WBC RBC Hgb Hct MCV MCH MCHC RDW Plt Count MPV PT with INR INR Sodium 139 Potassium 3.9 D Chloride 109 H Carbon Dioxide 21 Anion Gap 9 BUN 10 Creatinine 0.6 Creat Clearance w eGFR > 60 Random Glucose 81 D Calcium 8.4 L Total Bilirubin 1.1 H Direct Bilirubin 0.6 H AST 34 ALT 28 Alkaline Phosphatase 113 Total Protein 7.9 Albumin 2.5 L Hepatitis Be Antibody Hepatitis Be Antigen HCV Quantitation HCV RNA PCR log undercover cop/ml Active Medications Generic Name Dose Route Start Last Admin Trade Name Freq PRN Reason Stop Dose Admin Acetaminophen 650 mg 10/06/17 14:38 10/06/17 20:45 Tylenol - PO 650 mg Q6H PRN Administration FEVER OR PAIN Amlodipine Besylate 5 mg 10/07/17 10:00 10/07/17 11:33 Norvasc - PO 5 mg DAILY PORTIA Administration Baclofen 10 mg 10/07/17 10:00 10/07/17 11:32 Lioresal - PO 10 mg DAILY PORTIA Administration Docusate Sodium 200 mg 10/06/17 22:00 10/06/17 21:52 Colace - PO 200 mg HS PORTIA Administration Gabapentin 300 mg 10/06/17 22:00 10/07/17 15:21 Neurontin - PO 300 mg TID PORTIA Administration Heparin Sodium (Porcine) 5,000 unit 10/06/17 22:00 10/07/17 15:19 Heparin - SQ 5,000 unit TID PORTIA Administration Sodium Chloride 1,000 mls @ 100 mls/hr 10/06/17 14:38 10/07/17 06:46 Normal Saline - IV 100 mls/hr ASDIR PORTIA Administration CEFTRIAXONE 1 G/50 ML PREMIX 50 mls @ 100 mls/hr 10/08/17 10:00 Ceftriaxone 1 Gm-D5w Bag IVPB DAILY PORTIA Metronidazole 500 mg in 100 mls @ 100 mls/hr 10/07/17 21:00 Flagyl 500mg Premixed Ivpb - IVPB Q6H-IV PORTIA Lactulose 20 gm 10/06/17 22:00 10/07/17 15:21 Cephulac (Oral Use) PO 20 gm TID PORTIA Administration Nadolol 40 mg 10/07/17 10:00 10/07/17 11:33 Corgard - PO 40 mg DAILY PORTIA Administration Nicotine 14 mg 10/07/17 10:00 10/07/17 11:33 Nicoderm Patch - TD 14 mg DAILY PORTIA Administration Oxycodone HCl 5 mg 10/06/17 14:38 Roxicodone - PO Q6H PRN PAIN Pantoprazole Sodium 20 mg 10/07/17 10:00 10/07/17 11:33 Protonix - PO 20 mg DAILY PORTIA Administration Senna 2 tab 10/07/17 10:00 10/07/17 15:25 Senna - PO Not Given DAILY PORTIA ASSESSMENT/PLAN: 61F w/ hx of HTN and alcohol abuse, who presented to the hospital for back pain and atypical chest pain, was found to have gallbladder edema on ct and was [facility]. # Back pain possibly 2/2 cholecystitis * HIDA: inadequate filling 2/2 recently ingested food vs. severe chronic cholecystitis vs. acalculus cholecystitis * EGD done by GI: Single, grade 1-2 esophageal varix w/o stigmata of recent, or impending bleeding. start nadolol. Repeat EGD to be done in 1 year * continue Ceftriaxone 1gm IVBP daily and flagyl 500mg q6h per ID (day 4) * MRCP: cirrhosis, cholelithiasis w/ marked gallbladder thickening, can't r/o cholecystitis, no evidence of choledocolithiasis. 3 hepatic lesions, possibly due to HCC. pancreatic head cysts, unclear etiology. significant atherosclerotic disease of b/l iliac arteries * GI, surgery, and ID recs appreciated. daily PT, CMP, and direct bili. EUS of pancreatic cysts to be performed as outpt * continue lactulose, titrate to 4 BM/day. * AFP: 8.3, upper level of normal, f/u as outpt * CA-19-9: 83, elevated, f/u as outpt * hepatitis panel: pending * HIV negative * oncology consulted, recs appreciated #normocytic anemia -Hgb of 10.5 -B12: 914, upper level of normal -folate: pending # Atypical Chest pain- possibly referred pain 2/2 cholecystitis * Unlikely ACS. No troponinemia, no signs of ischemia on EKG, CXR negative, CTA negative # TYLER- pre-renal 2/2 volume depletion- resolved # Peripheral neuralgia * continue home gabapentin # HTN- controlled * home amlodipine dose decreased to 5mg # H/O thrombocytopenia likely 2/2 Alcohol abuse vs. essential * Avoid ASA * stop heparin if Plt less than 50,000 # Alcohol abuse * counselled # Nicotine abuse * counselled * Nicotine patch # FEN/ppx * NS 100 CC /hr * E: electrolytes nwl * N: clear liquid diet * heparin 5000 TID * protonix #Dispo -trying to transfer pt for cholecystectom. Will advance diet as tolerated. If pt can handle it and her abdominal pain resolved, can D/C home. Case discussed with attending, Dr. Boucher. -You Malone MD PGY1 Visit type - Emergency Visit Emergency Visit: Yes ED Registration Date: 10/03/17 Care time: The patient presented to the Emergency Department on the above date and was hospitalized for further evaluation of their emergent condition. - New Patient This patient is new to me today: No - Critical Care Critical Care patient: No
[2017-10-07] MEDS: DOCUSATE SODIUM 100 MG CAPSULE (FP) PO SCH (23:04)
[2017-10-08] MEDS: METRONIDAZOLE 500 MG PREMIXED 500 MG/100 ML MG IVPB SCH ×2 (02:37→08:53)
[2017-10-08] MEDS: HEPARIN NA (PORCINE) 5,000 UNITS/ML 1ML VIAL SQ SCH (06:57)
[2017-10-08] MEDS: GABAPENTIN 300 MG CAPSULE (FP) PO SCH (06:57)
[2017-10-08] MEDS: LACTULOSE 20 GM/30 ML UDC (FOR ORAL USE ONLY) PO SCH (06:57)
[2017-10-08 07:49] LABS: HEMATOCRIT 33.1 % (32.4-45.2); HEMOGLOBIN 10.8 GM/dL (10.7-15.3); MCHC 32.5 g/dl (32.0-36.0); MEAN CELL VOLUME 89.3 fl (80-96); MEAN PLT VOLUME 8.5 fl (7.5-11.1); PLATELET COUNT 141 K/MM3 (134-434); RBC 3.71 M/mm3 (3.60-5.2); RDW 13.1 % (11.6-15.6); WHITE BLOOD COUNT 3.1 K/mm3 (4.0-10.0)
[2017-10-08 07:53] LABS: INR 1.85 (0.82-1.09); PROTHROMBIN TIME (PATIENT) 20.9 SEC (9.98-11.88)
--- NOTE | 2017-10-08 07:55 | PN ---
Progress Note (short form) - Note Progress Note: Attending Surgeon No c/o; tolerated diet VSS AF abdomen-soft; flat and non tender labs today pending IMP: improved PLAN: She may need cholecystectomy h/e she has other imaging and laboratory abnormalities present which need continued w/u in the outpatient setting; in addition she should be seen and evaluated for surgery if needed at a tertiary care institution given her underlying liver disease and varices; would advance diet as tolerated. Abimael Tejada MD FACS
[2017-10-08 08:01] LABS: ALBUMIN 2.4 g/dl (3.4-5.0); ANION GAP 9 (8-16); BILIRUBIN,DIRECT 0.4 mg/dL (0.0-0.2); BILIRUBIN,TOTAL 0.8 mg/dL (0.2-1.0); BLOOD UREA NITROGEN 8 mg/dL (7-18); CALCIUM 8.1 mg/dL (8.5-10.1); CHLORIDE 109 mmol/L (98-107); CO2 20 mmol/L (21-32); CREATININE 0.6 mg/dL (0.55-1.02); GLUCOSE,RANDOM 96 mg/dL (74-106); POTASSIUM 3.5 mmol/L (3.5-5.1); SGOT/AST 27 U/L (15-37); SGPT/ALT 23 U/L (12-78); SODIUM 138 mmol/L (136-145); TOT PROT 7.5 g/dl (6.4-8.2)
[2017-10-08 08:02] LABS: ALK PHOS 107 U/L (45-117)
[2017-10-08] MEDS ORDERED: POTASSIUM CHLORIDE TABS 20 MEQ TABLET.ER (FP) PO ONE ×2 (09:10→12:15)
[2017-10-08] MEDS ORDERED: CEFTRIAXONE 1 G/50 ML PREMIX 50 ML IVPB SCH (10:00)
[2017-10-08] MEDS ORDERED: PT OWN MED DRAWER 7, Y5N ONE (11:10)
[2017-10-08] MEDS: NADOLOL 40 MG TABLET (FP) PO SCH (11:16)
[2017-10-08] MEDS: BACLOFEN 10 MG TABLET (FP) PO SCH (11:16)
[2017-10-08] MEDS: amLODIPine BESYLATE 5 MG TABLET (FP) PO SCH (11:17)
[2017-10-08] MEDS: SODIUM CHLORIDE 1,000 ML IV SCH (11:17)
[2017-10-08] MEDS: SENNOSIDES 8.6MG TABLET (FP) PO SCH (11:18)
[2017-10-08] MEDS: NICOTINE 14 MG/24 HOURS TOPICAL PATCH TD SCH (11:20)
[2017-10-08] MEDS: PANTOPRAZOLE 20 MG TABLET (FP) PO SCH (11:20)
--- NOTE | 2017-10-08 12:42 | PN ---
Progress Note (short form) - Note Progress Note: no abdominal pain Vital Signs Period Temp Pulse Resp BP Sys/Ayala Pulse Ox Last 24 Hr 98.1 F-98.8 F 56-63 18-20 112-123/59-78 98 cor-rrr lungs clear abd soft,nt ext no edema CBC, BMP 10/08/17 07:15 10/08/17 07:15 Microbiology 10/04/17 10:35 Blood - Peripheral Venous Blood Culture - Preliminary NO GROWTH OBTAINED AFTER 96 HOURS, INCUBATION TO CONTINUE FOR 1 DAYS. 10/04/17 10:30 Blood - Peripheral Venous Blood Culture - Preliminary NO GROWTH OBTAINED AFTER 96 HOURS, INCUBATION TO CONTINUE FOR 1 DAYS. a/p abdominal pain-chronic cholycystitis- continue rocephin/flagyl day #6 antibiotics- plan 7 days antibiotics diet being advanced cirrhosis- prior hep c positive weight loss- HIV negative recent neck surgery please call back if needed Problem List - Problems (1) Abdominal pain Code(s): R10.9 - UNSPECIFIED ABDOMINAL PAIN (2) Liver cirrhosis Code(s): K74.60 - UNSPECIFIED CIRRHOSIS OF LIVER (3) Weight loss Code(s): R63.4 - ABNORMAL WEIGHT LOSS
--- NOTE | 2017-10-08 12:44 | PN ---
Teaching Attending Note Name of Resident: You Malone ATTENDING PHYSICIAN STATEMENT I saw and evaluated the patient. I reviewed the resident's note and discussed the case with the resident. I agree with the resident's findings and plan as documented. SUBJECTIVE: No fever or chills . No abd pain, denies N/V, tolerated diet. OBJECTIVE: NAD, AAOx3 Lungs: CTAB CV: RRR ABd: soft, ND, NT , NO guarding Ext: no edema A/P: 61 y/o lady with h/o HEp C, HTN, peripheral neuropathy, ETOH abuse , who presented with abd pain . 1- RUQ abd pain. with evidence of chronic cholecystitis - today is day 6 of IV abx ( started on ) - d/w Dr. Lopez, 7 day course is indicated - advance diet - now patient refuses to be transferred and wants to go home 2- Possible cirrhosis on MRI. could be due to alcohol and/or Hep c - EGD with grade 1-2 esophageal varices . cont nadolol 40 mg/day - lactulose 3- Liver lesions : not clear of etiology, AFP Nl. f/u as outpt 4- Pancreatic head lesions /cysts. with elevated Ca9-19 . - EUS at a tertiary center as out pt 5- TYLER: resolved with hydration, stop IVF 6- Asympromatic pyuria , no treatment indicated 7- HTN: cont decreased dose of noravsc and nadolol DVT PX :DVT px Dispo: patient feels better and wants to go home. she refuses to be transferred. risk of worsening infection, bacteremia , and even was explained to her, she stated to understand but still wants to leave A .
[2017-10-08 15:04] VITALS: BP 122/72; PULSE 59; TEMP 98.2
[2017-10-08] MEDS ORDERED: METRONIDAZOLE 500 MG PREMIXED 500 MG/100 ML MG IVPB SCH (18:00)
--- NOTE | 2017-10-08 22:49 | DS ---
Physical Exam: SUBJECTIVE: Patient seen and examined. No acute events overnight. Pt reports multiple episodes of liquidy BMs, but denies abdominal pain, n/v, SOB, chest pain, and leg pain. She states that she is tolerating her diet well and she wants to go home. OBJECTIVE: Vital Signs Period Temp Pulse Resp BP Sys/Ayala Pulse Ox Last 24 Hr 98.2 F-98.3 F 59-63 18-20 122-123/72-78 PHYSICAL EXAM GENERAL: The patient is awake, alert, and fully oriented, in no acute distress. HEENT: poor dentition NECK: Trachea midline, full range of motion, supple. LUNGS: Breath sounds equal, clear to auscultation bilaterally, no wheezes, no crackles, no accessory muscle use. HEART: Regular rate and rhythm, S1, S2 without murmur, rub or gallop. ABDOMEN: Soft, nontender, nondistended, normoactive bowel sounds, no guarding, no rebound, no hepatosplenomegaly, no masses. EXTREMITIES: 2+ pulses, warm, well-perfused, no edema. NEUROLOGICAL: Cranial nerves II through XII grossly intact. Normal speech LABS Laboratory Results - last 24 hr 10/08/17 10/08/17 10/08/17 07:15 07:15 07:15 WBC 3.1 L RBC 3.71 Hgb 10.8 Hct 33.1 MCV 89.3 MCH 29.0 MCHC 32.5 RDW 13.1 Plt Count 141 MPV 8.5 PT with INR 20.90 H INR 1.85 H Sodium 138 Potassium 3.5 Chloride 109 H Carbon Dioxide 20 L Anion Gap 9 BUN 8 Creatinine 0.6 Creat Clearance w eGFR > 60 Random Glucose 96 Calcium 8.1 L Total Bilirubin 0.8 D Direct Bilirubin 0.4 H D AST 27 D ALT 23 Alkaline Phosphatase 107 Ammonia Total Protein 7.5 Albumin 2.4 L 10/08/17 07:15 WBC RBC Hgb Hct MCV MCH MCHC RDW Plt Count MPV PT with INR INR Sodium Potassium Chloride Carbon Dioxide Anion Gap BUN Creatinine Creat Clearance w eGFR Random Glucose Calcium Total Bilirubin Direct Bilirubin AST ALT Alkaline Phosphatase Ammonia 47.91 H Total Protein Albumin Microbiology 10/04/17 10:35 Blood - Peripheral Venous Blood Culture - Preliminary NO GROWTH OBTAINED AFTER 96 HOURS, INCUBATION TO CONTINUE FOR 1 DAYS. 12/26/17 10:30 Blood - Peripheral Venous Blood Culture - Preliminary NO GROWTH OBTAINED AFTER 96 HOURS, INCUBATION TO CONTINUE FOR 1 DAYS. MRCP: FINDINGS: The visualized lung bases inferior mediastinum are unremarkable. Right hepatic lobe is atrophic with nodular hepatic contour and markedly heterogeneous nodular arterial enhancement of the liver with scattered tiny enhancing foci particularly abdomen measuring up to 5 to 6 mm but with no restricted diffusion. There is normalization of flow in the sequential postcontrast images. In the right hepatic lobe there is a 7 mm hypodense lesion best appreciated on the phases after the arterial phase (locked: 47.80). 2 other lesions of similar characteristics are seen in the right hepatic lobe one measuring 1.4 cm (loc:11.80) and a second measuring 4 mm (loc: 8.80). There is posterior right hepatic dome cyst measuring 4 mm. The spleen is normal in size with no evidence of focal abnormal signal or abnormal hypo or hyper enhancing lesions. The pancreas is homogeneous in signal containing a 4-5 mm cyst in the pancreatic head. The pancreatic duct is not dilated. The gallbladder is partially distended containing layering stones. There is significant gallbladder wall thickening. The CBD is normal in caliber with no evidence of filling defects. There is no intrahepatic biliary ductal dilatation. The pancreatic duct and CBD are seen through the ampulla of Vater and appear widely patent. The adrenal glands are unremarkable. The kidneys are symmetrically enhancing with no evidence of enhancing lesions. There is no hydronephrosis. Scattered tiny cysts seen in the left kidney. There is no evidence of abdominal ascites. Prominent lymph nodes seen in the lesser sac and ning hepatis. There are no abnormally dilated bowel loops. There is extensive perigastric and Esophageal varices with some splenorenal varices. There is marked aortoiliac atherosclerotic disease with high-grade stenoses at the origins of the iliac arteries. The visualized osseous structures are grossly unremarkable. IMPRESSION : - 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 - Cholelithiasis with marked thickening of the gallbladder wall is possibly secondary to chronic hepatocellular disease. Correlation with HIDA scan is needed to exclude cholecystitis. No choledocholithiasis or pancreaticobiliary ductal dilatation. - Scattered tiny foci of arterial hepatic enhancement with no corresponding T2 signal abnormality or restricted diffusion statistically likely representing regenerative nodules in the setting of liver cirrhosis however dysplastic nodules cannot be completely excluded and continued follow-up is recommended. - 3 hepatic lesions the largest measuring 1.4 cm, best appreciated on the postcontrast images after the arterial phase and not clearly seen on the arterial phase could represent arterially enhancing lesions with rapid washout. In view of the liver cirrhosis, early HCC cannot be completely excluded. Correlation with alpha-fetoprotein level is needed and continued short-term follow-up is recommended. - Nonspecific Prominent lesser sac and ning hepatis lymph nodes. - Nonspecific 4-5 mm pancreatic head cysts. The differential diagnoses include parenchymal cyst, pseudocyst or early cystic neoplasm. Continued follow-up is recommended. - Significant aortoiliac atherosclerotic disease with apparent high-grade stenosis at the origin of the iliac arteries. Correlate with clinical history of buttock claudication - Leriche syndrome. HIDA scan: FINDINGS: There is homogeneous perfusion of the liver with no evidence of focal lesion. Extraction of tracer from the blood pool by the liver parenchyma is normal. Tracer appears within 10 minutes in the biliary tree. Tracer in the small bowel is first seen at 15minutes. There is linear tracer filling and the region of the gallbladder fossa with inadequate filling of the gallbladder. IMPRESSION: Mild linear and inadequate filling of the gallbladder x 2 h of imaging. Findings could be secondary to recently ingested food or secondary to severe chronic cholecystitis. Acalculus cholecystitis can have a similar appearance. Clinical correlation is needed. HOSPITAL COURSE: Date of Admission:10/03/17 Date of Discharge: 10/08/17 61F w/ hx of HTN, normocytic anemia, and significant alcohol abuse, who presented to the hospital for back pain and atypical chest pain, and was found to have gallbladder edema on ct and abnormal LFTs. She was believed to have choledocolithiasis, but MRCP revealed no stones in the CBD or CBD dilation. Instead, there was cirrhosis w/ varices, cholelithiasis w/ marked gallbladder thickening, 3 hepatic lesions, possibly due to HCC, pancreatic head cysts of unclear etiology, and significant atherosclerotic disease of b/l iliac arteries. A HIDA scan was done to r/o acute cholecystitis, and it showed inadequate filling 2/2 severe chronic cholecystitis vs. acalculus cholecystitis. Pt was seen by GI, and an EGD was done which demonstrated single , grade 1-2 esophageal varices w/o stigmata of recent, or impending bleeding. Pt was started on nadolol and instructed to get a repeat EGD in 1 year. In the hospital, pt was treated with ceftriaxone and flagyl, pain control, IV fluids, and her diet was advanced as tolerated. Her LFTs trended down and her abdominal pain resolved. Pt was found to have an elevated CA-19-9 and told to f/u as an outpt. Per surgery team, a cholecystectomy should be done at a tertiary care center considering the pt's cirrhosis with varices. Pt was informed that we wanted to transfer her to a tertiary care facility, but she decided to leave AMA and f/u as an outpt for the cholecystectomy and endoscopic US of her pancreatic cysts to r/o malignancy. Pt was explained the risks of leaving AMA, she understood the risks, and demonstrated capacity to make her decision. Pt was given referrals to a GI and general surgeon at [facility]. She was discharged with prescriptions for 3 more days of levaquin and flagyl as well as nadolol and lactulose. Because she was started on nadolol, her amlodipine dose was changed to 5mg. -You Malone MD PGY1 Minutes to complete discharge: 40 Discharge Summary Reason For Visit: CHEST PAIN Condition: Stable - Instructions Diet, Activity, Other Instructions: You presented with back pain and chest pressure, and you were found to have abnormal liver function tests, likely due to gallstones in your common bile duct. We did multiple imaging tests which showed that you have cirrhosis ( inflammation and destruction of your liver), gallstones, likely chronic cholecystitis, liver lesions, and pancreatic lesions. You were treated with IV antibiotics, IV fluids, pain control, and a bowel regimen. An endoscopy was done which showed that you have non-bleeding varices (dilated blood vessels in your GI tract). We wanted to transfer you to a tertiary care facility for a cholecytectomy and an endoscopic ultrasound of your pancreatic lesions, but you requested to leave Against medical advise . Medications: Continue taking all previous medications except: 1. Take levaquin 750mg once a day for 3 more days to prevent/treat infection 2. Take flagyl 500mg every 8 hours for 3 more days to prevent/treat infection 3. Take nadolol 40mg once a day every day for your varices 4. Take amlodipine 5mg instead of your previous 10mg every day for your high blood pressure 5. Take lactulose 20 grams once in the morning, once in the afternoon, and once in the evening every day for your cirrhosis, goal is 3 BMs a day, if you have diarrhea or more than 3 bowel movement a day hold it Followups: 1. Follow up with your PCP, Dr. Valles, in one week. 2. follow up with Dr. Vasquez , the glass cylinder flanger who saw you here , for further treatment plan 3- Follow up with a glass cylinder flanger within 2 weeks to schedule an endoscopic ultrasound of your pancreatic lesions. We have referred you to Dr. Rao Hopper at [facility]. We need to rule out malignancy of your panceas by doing a biopsy Dr. Rao Hopper- Gastroenterology [address] [id number] 3. Follow up with a general surgeon for your cholecystectomy (gallbladder removal operation). We have referred you to Dr. Sloan at [facility]. Bishop Sloan MD [address] [id number] If you develop any severe abdominal pain, fevers, chills, nausea or vomiting, shortness of breath, chest pain, or any other concerning symptom, return to the ED. Referrals: Bishop Sloan [Non Staff, Medical] - Jonathon Valles MD [Primary Care Provider] - Leonel Vasquez MD [Staff Physician] - Disposition: AGAINST MEDICAL ADVICE - Home Medications Comprehensive Discharge Medication List: Ambulatory Orders Baclofen [Lioresal -] 10 mg PO DAILY 10/02/17 Docusate Sodium [Colace -] 200 mg PO HS 10/02/17 Gabapentin [Neurontin -] 300 mg PO Q8H 10/02/17 Menthol [Bengay Ultra Strength] 1 each TP DAILY 10/02/17 Omeprazole Magnesium [Prilosec Otc] 20 mg PO DAILY 10/02/17 Oxycodone HCl [Roxicodone -] 5 mg PO Q6H 10/02/17 Sennosides [Senna] 17.2 mg PO DAILY 10/02/17 Amlodipine Besylate [Norvasc -] 5 mg PO DAILY #30 tablet 10/08/17 Lactulose (Oral Use) [Cephulac -] 20 gm PO TID #1 bottle 10/08/17 Levofloxacin [Levaquin] 750 mg PO DAILY #3 tab 10/08/17 Metronidazole [Flagyl -] 500 mg PO Q8H #9 tablet 10/08/17 Nadolol [Corgard] 40 mg GT DAILY #30 tablet 10/08/17 This patient is new to me today: No Emergency Visit: Yes ED Registration Date: 10/03/17 Care time: The patient presented to the Emergency Department on the above date and was hospitalized for further evaluation of their emergent condition. Critical Care patient: No - Discharge Referral Referred to [facility] Med [facility] No
[2017-10-11 16:17] LABS: HEP B CORE AB, TOT Negative (Negative)
== END 2017-10-08 14:32 | disposition left against medical advice (07) ==
LOC: JER 17:58 → JERBED 22:04 → UNDOADMOB 22:04 → JERBED 10-03 02:54 → OBSVTOIN 10-03 04:00 → J4S 10-03 23:15 → J5S 10-06 12:33
PROVIDERS: ADMIT Internal Medicine; ATTEND Internal Medicine
PROC: 0DJ08ZZ Inspection of Upper Intestinal Tract, Via Natural or Artificial Opening Endoscopic (ICD-10-PCS; principal; 2017-10-06 09:30)
DX: K80.12 Calculus of gallbladder with acute and chronic cholecystitis without obstruction (principal); I10 Essential (primary) hypertension; G62.9 Polyneuropathy, unspecified; N17.9 Acute kidney failure, unspecified; D64.9 Anemia, unspecified; R07.89 Other chest pain; M79.2 Neuralgia and neuritis, unspecified; F10.10 Alcohol abuse, uncomplicated; D69.6 Thrombocytopenia, unspecified; E86.9 Volume depletion, unspecified; F17.210 Nicotine dependence, cigarettes, uncomplicated; R63.4 Abnormal weight loss; Z68.22 Body mass index [BMI] 22.0-22.9, adult; K74.60 Unspecified cirrhosis of liver; N39.0 Urinary tract infection, site not specified; I86.4 Gastric varices; R07.9 Chest pain, unspecified; R10.9 Unspecified abdominal pain; B19.20 Unspecified viral hepatitis C without hepatic coma; K31.89 Other diseases of stomach and duodenum; D49.0 Neoplasm of unspecified behavior of digestive system; K86.2 Cyst of pancreas; I85.00 Esophageal varices without bleeding
CPT/HCPCS: 36415; 36430; 71010-TC; 71275-TC; 74175-TC; 74182-TC; 78226-TC; 80053; 80061; 81003; 81015; 82105; 82140; 82248; 82436; 82550; 82570; 82607; 82747; 83036; 83721; 84133; 84300; 84484; 85014; 85025; 85027; 85610; 85730; 86301; 86707; 86850; 86900; 86901; 87040; 87340; 87350; 87389; 87522; 93005; 93010; 97116-GP; 97161-GP; 99285-25; A9537; G0378; J0475; J1644; P9017